=== PATIENT | female | born 1950 | race Caucasian/White ===

== ENCOUNTER 2017-06-15 14:47 | Inpatient (IN) | payer OTHER ==
--- NOTE | 2017-06-15 14:50 | PDOC ---
History of Present Illness - General History Source: Patient Exam Limitations: No Limitations - History of Present Illness Initial Comments: 06/15/17 15:57 The patient is a 66 year old female, with a significant past medical history of rheumatoid arthritis, hyperlipidemia, hypertension, angioplasty, scoliosis, coronary artery disease, who presents to the emergency department via walk in with, progressively worsening epigastric abdominal pain for approx. one day. The patient reports that since 11 am this morning the epigastric abdominal pain has been progressively getting worse and states the pain is constant. The patient reports multiple bowel movements this morning which she describes as normal (denies diarrhea, watery or bloody stool) but reports feeling light headed and chills after her most recent bowel movement. The patient reports one episode of nausea with vomiting described as non bloody non bilious prior to arrival. The patient reports she called her PMD Dr. Hawkins who advised her to come to the ED for evaluation. The patient reports her most recent colonoscopy was approx. 7 years ago. She denies recent fevers, headache or dizziness. She denies recent, diarrhea or constipation. She denies recent dysuria, frequency, urgency or hematuria. She denies recent chest pain or shortness of breath. Allergies: quinine sulfate Past surgical history: left hip replacement 09/2012, cardiac stent 2009 Social history: Nonsmoker. Denies EtOH use and recreational drug use. Primary Care Physician: Dr. Philipp Hawkins <Zhang Chavez - Last Filed: 06/15/17 20:42> - History of Present Illness Initial Comments: 06/15/17 17:35 Physical exam: Alert and oriented 3, well-developed well-nourished, no acute distress, cheerful and cooperative Afebrile, vital signs normal No pallor or icterus. PERRLA, fundi benign, ENT clear Neck supple without mass bruit or nodes Chest clear to P&A, full breath sounds bilaterally CV S1 and S2 normal without murmur rub or gallop pulses full and symmetric no JVD or edema Abdomen nondistended. Bowel sounds normal. Soft without mass or organomegaly. There is tenderness to deep palpation in the epigastrium and right upper quadrant with the suggestion of a positive Paniagua sign. There is no lower quadrant tenderness and no CVAT. Extremities no CCE Neurological intact Skin clear, no rash, adequate turgor, and wet mucous membranes Impression: Differential includes acute viral gastroenteritis, biliary colic, acute cholecystitis, hepatitis, gastritis Plan: CBC and chemistries, urinalysis, ultrasound, and further evaluation depending on results. <Hussein Zee - Last Filed: 06/19/17 07:09> - General Chief Complaint: Pain Stated Complaint: ABDOMINAL PAIN,NAUSEA,VOMITING Time Seen by Provider: 06/15/17 14:50 Past History <Zhang Chavez - Last Filed: 06/15/17 20:42> - Past Medical History Cardiac Disorders: Yes HTN: Yes Hypercholesterolemia: Yes Thyroid Disease: Yes - Surgical History Cardiac Surgery: Yes (STENT) - Suicide/Smoking/Psychosocial Hx Smoking Status: No Smoking History: Former smoker Number of Cigarettes Smoked Daily: 2 <Hussein Zee - Last Filed: 06/19/17 07:09> - Past Medical History Allergies/Adverse Reactions: Allergies Allergy/AdvReac Type Severity Reaction Status Date / Time quinine sulfate [From Quine] Allergy Rash Verified 06/15/17 14:50 Home Medications: Ambulatory Orders Alprazolam 0.5 tablet PO HS PRN #100 08/01/14 Sulfasalazine [Sulfasalazine Dr] 2 tablet PO HS #150 08/01/14 traMADol HCL [Ultram -] 50 mg PO BID #60 08/01/14 Atenolol [Tenormin -] 25 mg PO DAILY 06/15/17 Fenofibrate 0 mg PO HS 06/15/17 Levothyroxine [Synthroid -] 50 mcg PO ASDIR 06/15/17 Levothyroxine [Synthroid -] 75 mcg PO ASDIR 06/15/17 Amlodipine Besylate 10 mg PO DAILY #15 tablet 06/17/17 Acetaminophen [Tylenol .Regular Strength -] 650 mg PO Q6H PRN tablet 06/18/17 Review of Systems - Review of Systems Comments:: 06/15/17 15:58 CONSTITUTIONAL: Present: +chills Absent: fever, diaphoresis, generalized weakness, malaise, loss of appetite HEENT: Absent: rhinorrhea, nasal congestion, throat pain, throat swelling, difficulty swallowing, mouth swelling, ear pain, eye pain, visual Changes CARDIOVASCULAR: Present: +lightheadedness Absent: chest pain, syncope, palpitations, irregular heart rate, peripheral edema RESPIRATORY: Absent: cough, shortness of breath, dyspnea with exertion, orthopnea, wheezing, stridor, hemoptysis GASTROINTESTINAL: Present: +epigastric abdominal pain. +nausea. +vomiting. Absent: abdominal distension, diarrhea, constipation, melena, hematochezia GENITOURINARY: Absent: dysuria, frequency, urgency, hesitancy, hematuria, flank pain, genital pain MUSCULOSKELETAL: Absent: myalgia, arthralgia, joint swelling SKIN: Absent: rash, itching, pallor HEMATOLOGIC/IMMUNOLOGIC: Absent: easy bleeding, easy bruising, lymphadenopathy, frequent infections ENDOCRINE: Absent: unexplained weight gain, unexplained weight loss, heat intolerance, cold intolerance NEUROLOGIC: Absent: headache, focal weakness or paresthesias, dizziness, unsteady gait, seizure, mental status changes, bladder or bowel incontinence PSYCHIATRIC: Absent: anxiety, depression, suicidal or homicidal ideation, hallucinations. <Zhang Chavez - Last Filed: 06/15/17 20:42> *Physical Exam - Vital Signs Last Vital Signs Temp Pulse Resp BP Pulse Ox 99.1 F 60 18 130/63 100 06/15/17 14:48 06/15/17 14:48 06/15/17 14:48 06/15/17 14:48 06/15/17 14:48 <Zhang Chavez - Last Filed: 06/15/17 20:42> Heart Score/ECG Review #1 06/15/17 20:43 Normal Sinus Rhythm at [address] Cadet. <Zhang Chavez - Last Filed: 06/15/17 20:42> ED Treatment Course - LABORATORY CBC & Chemistry Diagram: 06/15/17 15:51 06/15/17 15:51 - RADIOLOGY Radiograph Interpretation: 06/15/17 17:50 EXAM#: TYPE/EXAM: RESULT: [id number] US/ABDOMEN US -LIMITED EXAM: Ultrasound abdomen - limited. INDICATION: Right upper quadrant pain. Nausea. Emesis. TECHNIQUE: Real-time grayscale and color Doppler sonogram of the right upper quadrant of the abdomen was performed with the technologist. Images are submitted for review. COMPARISON: No prior right upper quadrant sonogram. FINDINGS: The liver is normal in size measuring 13.7 cm in length with grossly normal hepatic echotexture. No definite hepatic mass identified. There are numerous small mobile gallstones. The gallbladder is borderline hydropic. The gallbladder wall is thickened, measuring 5 mm with trace pericholecystic fluid. Technologist reports a positive sonographic Paniagua's sign. There is no evidence of intrahepatic or extrahepatic biliary ductal dilatation. A proximal extrahepatic bile duct measures 4-5 mm in diameter. The visualized portions of the pancreatic head and body are grossly unremarkable. The pancreatic tail is obscured by bowel gas and is not assessed. The right kidney is normal in size, measuring 11.2 cm in length with normal cortical echotexture and without hydronephrosis. There is a simple appearing cyst versus calyceal diverticulum in the upper pole of the right kidney, measuring 3.6 x 3.3 x 2.8 cm. No free fluid identified in the right upper quadrant of the abdomen. The upper abdominal aorta and intrahepatic IVC are grossly unremarkable, where imaged. IMPRESSION: 1. Borderline hydropic gallbladder with mobile cholelithiasis, gallbladder wall thickening, trace pericholecystic fluid and positive sonographic Paniagua's sign. The constellation of findings are compatible with acute cholecystitis in the appropriate clinical setting. 2. No evidence of intrahepatic or extrahepatic biliary ductal dilatation. 3. A 3.6 x 3.3 cm right renal cyst versus calyceal diverticulum. Reported By: Ansley Wetzel DO <Zhang Chavez - Last Filed: 06/15/17 20:42> - LABORATORY CBC & Chemistry Diagram: 06/18/17 06:00 06/18/17 06:00 <Hussein Zee - Last Filed: 06/19/17 07:09> Medical Decision Making - Medical Decision Making 06/15/17 18:16 White blood count is normal, but the patient is maintained on Humira Bilirubin and LFTs are mildly elevated. Ultrasound shows gallstones and evidence of acute cholecystitis. There is no bile duct dilatation. Spoke to patient's primary M.D. Dr. Mullins. He recommends admission and consultation with GI, surgery. This was discussed with the patient. She agrees. She will be transferred to [facility]. Possible ERCP and GI evaluation, as well as surgical consultation. 06/19/17 07:07 <Hussein Zee - Last Filed: 06/19/17 07:09> *DC/Admit/Observation/Transfer - Attestations Scribe Attestion: 06/15/17 15:58 Documentation prepared by Zhang Chavez, acting as medical center representative for Hussein Zee MD. <Zhang Chavez - Last Filed: 06/15/17 20:42> - Discharge Dispostion Admit: Yes <Hussein Zee - Last Filed: 06/19/17 07:09> Diagnosis at time of Disposition: Acute cholecystitis - Discharge Dispostion Condition at time of disposition: Good
[2017-06-15] MEDS ORDERED: SODIUM CHLORIDE 1,000 ML IV STA (15:55)
[2017-06-15] MEDS ORDERED: PANTOPRAZOLE SODIUM 40 MG in SODIUM CHLORIDE 100 ML IVPB ONE (15:56)
[2017-06-15] MEDS ORDERED: ONDANSETRON 4 MG/2 ML VIAL IVPB ONE (15:56)
[2017-06-15] MEDS ORDERED: ONDANSETRON 4 MG/2 ML VIAL ONE (16:01)
[2017-06-15] MEDS ORDERED: PANTOPRAZOLE SODIUM 40 MG VIAL ONE (16:01)
[2017-06-15 16:27] LABS: EOS % 0.2 % (0-4.5); MCH 28.6 pg (25.7-33.7)
[2017-06-15 16:31] LABS: ALBUMIN 4.6 g/dl (3.5-5.0); ALK PHOS 89 U/L (32-92); ANION GAP 10 (8-16); BILIRUBIN,TOTAL 1.9 mg/dl (0.2-1.0); BLOOD UREA NITROGEN 20 mg/dl (7-18); CALCIUM 9.9 mg/dl (8.4-10.2); CHLORIDE 102 mmol/L (98-107); CO2 26 mmol/L (22-28); CREATININE 0.8 mg/dl (0.6-1.3); GLUCOSE,RANDOM 119 mg/dl (74-106); POTASSIUM 3.7 mmol/L (3.5-5.1); SGOT/AST 284 U/L (10-42); SGPT/ALT 264 U/L (10-40); SODIUM 138 mmol/L (136-145); TOT PROT 7.4 g/dl (6.4-8.3)
[2017-06-15 16:32] LABS: HEMATOCRIT 43.9 % (32.4-45.2); HEMOGLOBIN 14.4 GM/dl (10.7-15.3); LYMPH % 10.9 % (8-40); MCHC 32.8 g/dl (32.0-36.0); MEAN PLT VOLUME 10.4 fl (7.5-11.1); MONO % 3.7 % (3.8-10.2); NEUT % 85.2 % (42.8-82.8); PLATELET COUNT 243 K/MM3 (134-434); RBC 5.04 M/mm3 (3.60-5.2); RDW 13.1 % (11.6-15.6); WHITE BLOOD COUNT 9.1 K/mm3 (4.0-10.8)
[2017-06-15 16:43] LABS: URINE APPEARANCE Clear; URINE BILIRUBIN 2+ (NEGATIVE); URINE BLOOD Negative (NEGATIVE); URINE GLUCOSE (UA) Negative (NEGATIVE); URINE KETONE Negative (NEGATIVE); URINE LEUK ESTERASE Negative (NEGATIVE); URINE NITRITE Negative (NEGATIVE); URINE PROTEIN Negative (NEGATIVE); URINE UROBILINOGEN 0.2 (0.2-1.0)
[2017-06-15 16:45] LABS: URINE COLOR YELLOW
[2017-06-15] MEDS ORDERED: PIPERACIL/TAZOB 3.375 GM 3.375 GM/50 ML PREMIX IVPB ONE (18:14)
[2017-06-15] MEDS ORDERED: morphine CARPU-JECT 4 MG/1 ML DISP.SYRIN IVPUSH ONE ×2 (18:16→23:11)
[2017-06-15] MEDS ORDERED: morphine SULFATE 4 MG/ML VIAL ONE ×2 (18:28→23:48)
[2017-06-15] MEDS ORDERED: PIPERACILLIN/TAZOBACTAM 3.375 GM VIAL IVPB ONE (18:28)
[2017-06-15] MEDS ORDERED: ONDANSETRON 4 MG/2 ML VIAL IVPUSH PRN (18:55)
[2017-06-15] MEDS: SODIUM CHLORIDE 1,000 ML IV SCH (19:01)
[2017-06-16] MEDS: SODIUM CHLORIDE 1,000 ML IV SCH ×2 (02:00→12:34)
[2017-06-16 02:33] VITALS: BMI 29.0
[2017-06-16] MEDS ORDERED: PIPERACIL/TAZOB 3.375 GM 3.375 GM/50 ML PREMIX IVPB SCH (03:00)
--- NOTE | 2017-06-16 03:16 | HP ---
Admitting History and Physical - Primary Care Physician PCP: Rosalio Louis - Admission Chief Complaint: Epigastric Pain, Multiple BMs History of Present Illness: This is a 66 y/o woman who presents to the ED with epigastric pain, multiple BMs , lightheadedness and chills x 1 day. Patient describes the pain as becoming progressively worse during the day. She reports having numerous formed BMs, but developed chills and felt lightheaded after her last BM. Patient denies fever, cough, SOB, CP, palpitations, N/V/D, constipation, dysuria. Patient states her last colonoscopy was 7 yrs ago. History Source: Patient Limitations to Obtaining History: No Limitations - Past Medical History Cardiovascular: Yes: CAD, HTN, Hyperlipdemia Reproductive: Yes: Postmenopausal ...: No Musculoskeletal: Yes: Other (Scoliosis) Rheumatology: Yes: Rheumatoid Arthritis Endocrine: Yes: Hypothyroidism - Past Surgical History Past Surgical History: Yes: Colonoscopy, Joint Replacement (Left), Stent ( Cardiac) Additional Past Surgical History: Angioplasty - Smoking History Smoking history: Former smoker Have you smoked in the past 12 months: No Aproximately how many cigarettes per day: 2 If you are a former smoker, when did you quit?: 40 years ago - Alcohol/Substance Use Hx Alcohol Use: No History of Substance Use: reports: None - Social History Usual Living Arrangement: Yes: Alone ADL: Independent History of Recent Travel: No Home Medications - Allergies Allergies/Adverse Reactions: Allergies Allergy/AdvReac Type Severity Reaction Status Date / Time quinine sulfate [From Quine] Allergy Rash Verified 06/15/17 14:50 - Home Medications Home Medications: Ambulatory Orders Alprazolam 0.5 tablet PO HS PRN #100 08/01/14 Sulfasalazine [Sulfasalazine Dr] 2 tablet PO HS #150 08/01/14 traMADol HCL [Ultram -] 50 mg PO BID #60 08/01/14 Atenolol [Tenormin -] 25 mg PO DAILY 06/15/17 Fenofibrate 0 mg PO HS 06/15/17 Levothyroxine [Synthroid -] 50 mcg PO ASDIR 06/15/17 Levothyroxine [Synthroid -] 75 mcg PO ASDIR 06/15/17 Amlodipine Besylate 10 mg PO DAILY #15 tablet 06/17/17 Acetaminophen [Tylenol .Regular Strength -] 650 mg PO Q6H PRN tablet 06/18/17 Family Disease History - Family Disease History Family Disease History: Diabetes: Grandparent (Paternal-DM, Maternal-Cardiac), Heart Disease: Grandparent, Mother (Triple Bypass), Other: Father (Renal Colic) Other Family History: Paternal Aunt- Cervical Ca Review of Systems - Review of Systems Constitutional: reports: Chills Eyes: reports: No Symptoms HENT: reports: No Symptoms Neck: reports: No Symptoms Cardiovascular: reports: No Symptoms Respiratory: reports: No Symptoms Gastrointestinal: reports: Abdominal Pain, Other (multiple BMs) Genitourinary: reports: No Symptoms Breasts: reports: No Symptoms Reported Musculoskeletal: reports: No Symptoms Integumentary: reports: No Symptoms Neurological: reports: No Symptoms Endocrine: reports: No Symptoms Hematology/Lymphatic: reports: No Symptoms Psychiatric: reports: No Symptoms Pain Intensity: 5 Physical Examination Vital Signs: Vital Signs Temperature 99.4 F 06/16/17 01:27 Pulse Rate 71 06/16/17 01:27 Respiratory Rate 20 06/16/17 01:27 Blood Pressure 128/66 06/16/17 01:27 O2 Sat by Pulse Oximetry (%) 95 06/15/17 23:46 Constitutional: Yes: Well Nourished, No Distress, Calm, Obese Eyes: Yes: WNL, Conjunctiva Clear, PERRL HENT: Yes: WNL, Atraumatic, Normocephalic Neck: Yes: WNL, Supple, Trachea Midline Cardiovascular: Yes: WNL, Regular Rate and Rhythm, S1, S2 Respiratory: Yes: WNL, Regular, CTA Bilaterally Gastrointestinal: Yes: Normal Bowel Sounds, Soft, Abdomen, Obese, Tenderness ( RUQ), Tenderness, Epigastrium ...Rectal Exam: Yes: Deferred Renal/: Yes: WNL Breast(s): Yes: WNL Musculoskeletal: Yes: WNL Extremities: Yes: WNL Edema: No Peripheral Pulses WNL: Yes Integumentary: Yes: WNL Neurological: Yes: WNL, Alert, Oriented, Cran Nerves II-XII Intact ...Motor Strength: WNL, LUE, LLE, RUE, RLE Psychiatric: Yes: WNL, Alert, Oriented Labs: CBC, BMP 06/15/17 15:51 06/15/17 15:51 Imaging - Results Cat Scan: Report Reviewed, Image Reviewed EKG: Image Reviewed Problem List - Problems (1) Acute cholecystitis Assessment/Plan: CTAP- Cholelithiasis, GB wall thickening, trace pericholecystic fluid, + sonographic joyce's sign findings are compatible with acute cholecystitis No leukocytosis, +Neutrophils T Bili elevated Blood Cultures-pending Zosyn started in ED, will continue Appreciate Surgical Consult Appreciate GI Consult ?MRCP IVF NPO, except meds Monitor CBCD, BMP Monitor vitals Code(s): K81.0 - ACUTE CHOLECYSTITIS (2) Abdominal pain, epigastric Assessment/Plan: See Above Code(s): R10.13 - EPIGASTRIC PAIN (3) Transaminitis Assessment/Plan: Likely secondary to Acute Cholecystitis Monitor LFTs Appreciate GI Consult Possible MRCP Avoid Hepatoxic Drugs Code(s): R74.0 - NONSPEC ELEV OF LEVELS OF TRANSAMNS & LACTIC ACID DEHYDRGNSE (4) HTN (hypertension) Assessment/Plan: Controlled Monitor BP Continue home meds with parameters Code(s): I10 - ESSENTIAL (PRIMARY) HYPERTENSION Qualifiers: Hypertension type: essential hypertension Qualified Code(s): I10 - Essential (primary) hypertension (5) HLD (hyperlipidemia) Assessment/Plan: Hold Fenofibrate Code(s): E78.5 - HYPERLIPIDEMIA, UNSPECIFIED Qualifiers: Hyperlipidemia type: pure hypercholesterolemia Qualified Code(s): E78.00 - Pure hypercholesterolemia, unspecified; E78.0 - Pure hypercholesterolemia (6) Hypothyroidism Assessment/Plan: - Continue Levothyroxine Code(s): E03.9 - HYPOTHYROIDISM, UNSPECIFIED Qualifiers: Hypothyroidism type: acquired Qualified Code(s): E03.9 - Hypothyroidism, unspecified (7) CAD (coronary artery disease) Assessment/Plan: s/p Stent Hold Plavix until patient is seen by GI and Surgeon Code(s): I25.10 - ATHSCL HEART DISEASE OF [place] CORONARY ARTERY W/O ANG PCTRS Qualifiers: Coronary Disease-Associated Artery/Lesion type: [place] artery [place] vs. transplanted heart: [place] heart Associated angina: without angina Qualified Code(s): I25.10 - Atherosclerotic heart disease of [place] coronary artery without angina pectoris Assessment/Plan This is a 66 y/o woman with a PMHx of: HTN, HLD, CAD (Stent), Hypothyroid, Scoliosis. Placed on Observation for Acute Cholecystitis Plan: FEN NS@100cc/hr Replete lytes prn NPO Code Status: Full Code Dispo: Observation Visit type - Emergency Visit Emergency Visit: Yes ED Registration Date: 06/15/17 Care time: The patient presented to the Emergency Department on the above date and was hospitalized for further evaluation of their emergent condition. - New Patient This patient is new to me today: Yes Date on this admission: 06/15/17 - Critical Care Critical Care patient: No
[2017-06-16] MEDS ORDERED: PIPERACILLIN/TAZOB 4.5 GM/100 ML PREMIX BAG IVPB SCH ×2 (03:47→04:00)
[2017-06-16] MEDS ORDERED: PIPERACILLIN/TAZOB 4.5 GM 4.5 GM in DEXTROSE 5%-WATER - 100 ML IVPB ONE (04:00)
[2017-06-16] MEDS: MORPHINE SULFATE 10 MG/1 ML *VIAL IVPUSH PRN ×3 (05:52→17:18)
[2017-06-16] MEDS ORDERED: LEVOTHYROXINE NA 75 MCG TABLET (FP) PO SCH (07:00)
[2017-06-16 08:10] LABS: BASO % 0.5 % (0-2.0); EOS % 0.8 % (0-4.5); HEMATOCRIT 38.7 % (32.4-45.2); HEMOGLOBIN 12.6 GM/dL (10.7-15.3); MCH 28.2 pg (25.7-33.7); MCHC 32.5 g/dl (32.0-36.0); MEAN CELL VOLUME 86.7 fl (80-96); MEAN PLT VOLUME 9.6 fl (7.5-11.1); MONO % 8.7 % (3.8-10.2); PLATELET COUNT 179 K/MM3 (134-434); RBC 4.46 M/mm3 (3.60-5.2); RDW 14.3 % (11.6-15.6); WHITE BLOOD COUNT 5.7 K/mm3 (4.0-10.0)
[2017-06-16 08:11] LABS: ANION GAP 9 (8-16); BLOOD UREA NITROGEN 15 mg/dL (7-18); CALCIUM 9.3 mg/dL (8.5-10.1); CHLORIDE 110 mmol/L (98-107); CO2 27 mmol/L (21-32); GLUCOSE,RANDOM 93 mg/dL (74-106); POTASSIUM 3.4 mmol/L (3.5-5.1); SODIUM 146 mmol/L (136-145)
[2017-06-16 08:12] LABS: CREATININE 0.8 mg/dL (0.55-1.02)
--- NOTE | 2017-06-16 08:27 | CON.GI ---
Consult Consult Specialty:: GI - History of Present Illness History of Present Illness: A 66 yof with mild epigastric pain and heartburn after meals on/off since last week. Progressed on Thursday to having chills, nausea with an episode of vomiting , severe epigastric pain and frequent, formed, bms. No jaundice, dysphagia, odynophagia, hematemesis, hematochezia, or melena. Denies chronic GERD, NSAIDs, ETOH, recent, significant weight loss, changes in stool caliper, history of pancreatitis, hepatitis, of GI issues in general. Never had EGD. Had a normal colonoscopy 7-8 y ago. In ED noted to have AST~ALT, mild choelstasis and GS disease on US, possible cholecystitis. - History Source History Provided By: Patient - Past Medical History Cardio/Vascular: Yes: CAD, HTN, Hyperlipdemia ...: No Musculoskeletal: Yes: Other (Scoliosis) Rheumatology: Yes: Rheumatoid Arthritis Endocrine: Yes: Hypothyroidism - Past Surgical History Past Surgical History: Yes: Colonoscopy, Joint Replacement (Left), Stent ( Cardiac) - Alcohol/Substance Use Hx Alcohol Use: No History of Substance Use: reports: None - Smoking History Smoking history: Former smoker Have you smoked in the past 12 months: No Aproximately how many cigarettes per day: 2 If you are a former smoker, when did you quit?: 40 years ago - Social History ADL: Independent History of Recent Travel: No Home Medications - Allergies Allergies/Adverse Reactions: Allergies Allergy/AdvReac Type Severity Reaction Status Date / Time quinine sulfate [From Quine] Allergy Rash Verified 06/15/17 14:50 - Home Medications Home Medications: Ambulatory Orders Adalimumab [Humira] 40 mg SQ [id number] #2 08/01/14 Alprazolam 0.5 tablet PO HS PRN #100 08/01/14 Sulfasalazine [Sulfasalazine Dr] 2 tablet PO HS #150 08/01/14 Tramadol HCl [Ultram -] 50 mg PO BID #60 08/01/14 Atenolol [Tenormin -] 25 mg PO DAILY 06/15/17 Clopidogrel Bisulfate [Plavix] 75 mg PO Q2D 06/15/17 Fenofibrate 0 mg PO HS 06/15/17 Levothyroxine [Synthroid -] 50 mcg PO ASDIR 06/15/17 Levothyroxine [Synthroid -] 75 mcg PO ASDIR 06/15/17 Olmesartan/Hydrochlorothiazide [Olmesartan-Hctz 40-12.5 mg Tab] 1 each PO DAILY 06/15/17 Family Disease History - Family Disease History Family Disease History: Diabetes: Grandparent (Paternal-DM, Maternal-Cardiac), Heart Disease: Grandparent, Mother (Triple Bypass), Other: Father (Renal Colic) Other Family History: Paternal Aunt- Cervical Ca Review of Systems Findings/Remarks: As per HPI, H&P Physical Exam-GI Vital Signs: Vital Signs Temperature 99.2 F 06/16/17 06:48 Pulse Rate 74 06/16/17 06:48 Respiratory Rate 20 06/16/17 06:48 Blood Pressure 154/78 06/16/17 06:48 O2 Sat by Pulse Oximetry (%) 95 06/15/17 23:46 Constitutional: Yes: Well Nourished, No Distress, Calm Eyes: Yes: Conjunctiva Clear HENT: Yes: Atraumatic Neck: Yes: Supple Cardiovascular: Yes: Regular Rate and Rhythm Respiratory: Yes: Regular Gastrointestinal Inspection: No: Ascites, Distention ...Auscultate: Yes: Normoactive Bowel Sounds ...Palpate: Yes: Guarding (epigastric), Soft, Tenderness (epigastric), Tenderness, Epigastium ...Rectal Exam: Yes: Deferred Neurological: Yes: Alert, Oriented Labs: CBC, BMP 06/16/17 06:30 Laboratory Tests 06/15/17 06/15/17 06/15/17 15:51 15:51 15:51 WBC 9.1 RBC 5.04 Hgb 14.4 Hct 43.9 MCV 87.0 MCH 28.6 MCHC 32.8 RDW 13.1 Plt Count 243 MPV 10.4 Neutrophils % 85.2 H Lymphocytes % 10.9 Monocytes % 3.7 L Eosinophils % 0.2 Basophils % 0.0 Sodium 138 Potassium 3.7 Chloride 102 Carbon Dioxide 26 Anion Gap 10 BUN 20 H Creatinine 0.8 Creat Clearance w eGFR > 60 Random Glucose 119 H Calcium 9.9 Total Bilirubin 1.9 H AST 284 H ALT 264 H Alkaline Phosphatase 89 Total Protein 7.4 Albumin 4.6 Lipase Urine Color Yellow Urine Appearance Clear Urine pH 6.0 Ur Specific Chancellor 1.020 Urine Protein Negative Urine Glucose (UA) Negative Urine Ketones Negative Urine Blood Negative Urine Nitrite Negative Urine Bilirubin 2+ H Urine Urobilinogen 0.2 Ur Leukocyte Esterase Negative 06/15/17 06/16/17 06/16/17 16:00 06:30 06:30 WBC 5.7 RBC 4.46 Hgb 12.6 Hct 38.7 MCV 86.7 MCH 28.2 MCHC 32.5 RDW 14.3 Plt Count 179 MPV 9.6 Neutrophils % 66.0 Lymphocytes % 24.0 Monocytes % 8.7 Eosinophils % 0.8 Basophils % 0.5 Sodium 146 H Potassium 3.4 L Chloride 110 H Carbon Dioxide 27 Anion Gap 9 BUN 15 Creatinine 0.8 Creat Clearance w eGFR Random Glucose 93 Calcium 9.3 Total Bilirubin AST ALT Alkaline Phosphatase Total Protein Albumin Lipase 363 421 H Urine Color Urine Appearance Urine pH Ur Specific Chancellor Urine Protein Urine Glucose (UA) Urine Ketones Urine Blood Urine Nitrite Urine Bilirubin Urine Urobilinogen Ur Leukocyte Esterase Problem List - Problems (1) Cholelithiasis Code(s): K80.20 - CALCULUS OF GALLBLADDER W/O CHOLECYSTITIS W/O OBSTRUCTION (2) Transaminitis Code(s): R74.0 - NONSPEC ELEV OF LEVELS OF TRANSAMNS & LACTIC ACID DEHYDRGNSE (3) Cholestasis Code(s): K83.1 - OBSTRUCTION OF BILE DUCT (4) Acute cholecystitis Code(s): K81.0 - ACUTE CHOLECYSTITIS Assessment/Plan A 66 yof with likely cholecystitis and mild gallstone pancreatitis. Not in distress. Appears comfortable. Do not suspect upper GI inflammatory states sach as ulcers, etc at this time. On Plavix at home. NPO/IVF Antiemetics and pain managemnt PRN Abx (zosyn, or levo/flagyl, or as per ID) MRCP to r/o choledocolithiasis ordered repeat labs in PM ordered Surgical and ID evaluation was requested Discussed with the patient
[2017-06-16 08:28] LABS: LIPASE 421 U/L (73-393)
[2017-06-16] MEDS ORDERED: PIPERACILLIN/TAZOB 2.25 GM 2.25 GM/50 ML BAG IVPB SCH (11:30)
--- NOTE | 2017-06-16 11:54 | PN ---
Progress Note, Physician Chief Complaint: Pt lying in bed in no acute distress, reports mild epigastric abdominal pain. Denies chest pain, sob, N/V/D. - Current Medication List Current Medications: Active Medications Sodium Chloride (Normal Saline -) 1,000 mls @ 100 mls/hr IV ASDIR GLORIA Last Admin: 06/16/17 02:00 Dose: 100 mls/hr Piperacillin/Tazobactam/Dextrose (Zosyn 2.25gm Ivpb (Premix)) 2.25 gm in 50 mls @ 100 mls/hr IVPB Q8H-IV GLORIA PRN Reason: Protocol Levothyroxine Sodium (Synthroid -) 75 mcg PO Q3D@0700 [facility] Last Admin: 06/16/17 06:00 Dose: 75 mcg Levothyroxine Sodium (Synthroid -) 75 mcg PO Q3D@0700 [facility] Levothyroxine Sodium (Synthroid -) 50 mcg PO Q3D@0700 [facility] Morphine Sulfate (Morphine Injection -) 4 mg IVPUSH Q6H PRN PRN Reason: PAIN LEVEL 6-10 Last Admin: 06/16/17 05:52 Dose: 4 mg Ondansetron HCl (Zofran Injection) 4 mg IVPUSH Q4H PRN PRN Reason: NAUSEA AND/OR VOMITING - Objective Vital Signs: Vital Signs Temperature 98.8 F 06/16/17 10:00 Pulse Rate 63 06/16/17 10:00 Respiratory Rate 16 06/16/17 10:00 Blood Pressure 145/67 06/16/17 10:00 O2 Sat by Pulse Oximetry (%) 95 06/15/17 23:46 Constitutional: Yes: Well Nourished, No Distress, Calm Cardiovascular: Yes: WNL, Regular Rate and Rhythm. No: Gallop, Murmur, Rub Respiratory: Yes: WNL, Regular, CTA Bilaterally. No: Rales, Rhonchi, SOB, Tachypnea, Wheezes Gastrointestinal: Yes: Normal Bowel Sounds, Soft, Abdomen, Obese, Tenderness ( epigastric). No: Distention Genitourinary: Yes: WNL Musculoskeletal: Yes: WNL Extremities: Yes: WNL Edema: No Neurological: Yes: WNL, Alert, Oriented Psychiatric: Yes: WNL, Alert, Oriented Labs: CBC, BMP 06/16/17 06:30 06/16/17 06:30 Problem List - Problems (1) Acute cholecystitis Assessment/Plan: Pt came in with epigastric abd pain with N/V, Abd US indicative of acute cholecystitis with elevated lfts, dustin, and lipase Maintain NPO/ IVF Antiemetics/analegesics prn Antibiotics per ID MRCP to r/o choledocolithiasis ordered by GI Monitor am labs Surgery and ID consulted GI following Code(s): K81.0 - ACUTE CHOLECYSTITIS (2) Cholelithiasis Assessment/Plan: As above Code(s): K80.20 - CALCULUS OF GALLBLADDER W/O CHOLECYSTITIS W/O OBSTRUCTION Qualifiers: Cholelithiasis location: gallbladder Cholecystitis acuity: acute Biliary obstruction: without biliary obstruction (3) Transaminitis Assessment/Plan: As above Code(s): R74.0 - NONSPEC ELEV OF LEVELS OF TRANSAMNS & LACTIC ACID DEHYDRGNSE (4) Pancreatitis Assessment/Plan: mildly elevated lipase will monitor as above Code(s): K85.90 - ACUTE PANCREATITIS WITHOUT NECROSIS OR INFECTION, UNSP Qualifiers: Chronicity: acute Pancreatitis type: biliary (5) Rheumatoid arthritis Assessment/Plan: stable, holding home meds now Humira, Sulfasalazine, Tramadol at home Code(s): M06.9 - RHEUMATOID ARTHRITIS, UNSPECIFIED Qualifiers: Rheumatoid arthritis location: multiple sites Rheumatoid factor presence: unspecified presence Qualified Code(s): M06.9 - Rheumatoid arthritis, unspecified (6) HLD (hyperlipidemia) Assessment/Plan: holding Fenofibrate Code(s): E78.5 - HYPERLIPIDEMIA, UNSPECIFIED Qualifiers: Hyperlipidemia type: pure hypercholesterolemia Qualified Code(s): E78.00 - Pure hypercholesterolemia, unspecified; E78.0 - Pure hypercholesterolemia (7) HTN (hypertension) Assessment/Plan: continue Atenolol hold Olmesartan/Hydrochlorothiazide will monitor Code(s): I10 - ESSENTIAL (PRIMARY) HYPERTENSION Qualifiers: Hypertension type: essential hypertension Qualified Code(s): I10 - Essential (primary) hypertension (8) Hypothyroidism Assessment/Plan: stable continue levothyroxine Code(s): E03.9 - HYPOTHYROIDISM, UNSPECIFIED Qualifiers: Hypothyroidism type: acquired Qualified Code(s): E03.9 - Hypothyroidism, unspecified (9) CAD (coronary artery disease) Assessment/Plan: stable holding plavix for now aspirin 81mg started per cardiology Code(s): I25.10 - ATHSCL HEART DISEASE OF [place] CORONARY ARTERY W/O ANG PCTRS Qualifiers: Coronary Disease-Associated Artery/Lesion type: [place] artery [place] vs. transplanted heart: [place] heart Associated angina: without angina Qualified Code(s): I25.10 - Atherosclerotic heart disease of [place] coronary artery without angina pectoris
[2017-06-16] MEDS ORDERED: KCL 10 MEQ IVPB 10 MEQ/100 ML INFUS.BAG IVPB SCH (12:15)
[2017-06-16] MEDS ORDERED: HYDROCHLOROTHIAZIDE 12.5 MG CAPSULE (FP) PO SCH (12:30)
--- NOTE | 2017-06-16 12:33 | CON.CARD ---
Cardiology Consult (text) - Consultation Consultation Note: CC: pre-op clearance Chief Complaint: pre-op clearance History of Present Illness: 66 y/o with h/o CAD s/p mRCA cypher stent '08 with residual mLAD disease, known LBBB, htn, hl, RA on Humira, fibromyalgia, hypothyroid who p/w abdominal pain, now with suspicion for acute cholecystitis/possible developing pancreatitis --> likely requiring surgical intervention. + intermittent abdominal pain after meals x 1 week. Now with chills, n/v and worsening of abdominal pain. Has been treated thus far with IVF, abx. currently npo. Pain is well controlled with morphine. No formal exercise, ambulation limited by joint pain/back pain. However walks up a flight of stairs regularly without sx's/limitations. Stable conde after walking up 2 flights of stairs. no h/o cva/tia, chf, dm, ckd. Denies cp, sob at rest, orthopnea, pnd, le edema, palps, dizziness, bleeding, claudication or transient neurologic symptoms Denies h/a, visual disturbances, rash, cough, congestion. pmhx/pshx: per phi, additionally Joint Replacement (Left) Social hx: Former smoker fam hx: Heart Disease: mother CAD in 70s; PGF [place] in 70s ros: per hpi Ambulatory Orders Adalimumab [Humira] 40 mg SQ [id number] #2 08/01/14 Alprazolam 0.5 tablet PO HS PRN #100 08/01/14 Sulfasalazine [Sulfasalazine Dr] 2 tablet PO HS #150 08/01/14 traMADol HCL [Ultram -] 50 mg PO BID #60 08/01/14 Atenolol [Tenormin -] 25 mg PO DAILY 06/15/17 Clopidogrel Bisulfate [Plavix] 75 mg PO Q2D 06/15/17 Fenofibrate 0 mg PO HS 06/15/17 Levothyroxine [Synthroid -] 50 mcg PO ASDIR 06/15/17 Levothyroxine [Synthroid -] 75 mcg PO ASDIR 06/15/17 Olmesartan/Hydrochlorothiazide [Olmesartan-Hctz 40-12.5 mg Tab] 1 each PO DAILY 06/15/17 Current Medications Atenolol (Tenormin -) 25 mg PO DAILY GLORIA Sodium Chloride (Normal Saline -) 1,000 mls @ 100 mls/hr IV ASDIR GLORIA Last Admin: 06/16/17 02:00 Dose: 100 mls/hr Piperacillin/Tazobactam/Dextrose (Zosyn 2.25gm Ivpb (Premix)) 2.25 gm in 50 mls @ 100 mls/hr IVPB Q8H-IV GLORIA PRN Reason: Protocol Potassium Chloride 10 meq/ (Sodium Chloride) 105 mls @ 105 mls/hr IVPB Q1H [facility] Stop: 06/16/17 15:29 Levothyroxine Sodium (Synthroid -) 75 mcg PO Q3D@0700 [facility] Last Admin: 06/16/17 06:00 Dose: 75 mcg Levothyroxine Sodium (Synthroid -) 75 mcg PO Q3D@0700 [facility] Levothyroxine Sodium (Synthroid -) 50 mcg PO Q3D@0700 [facility] Morphine Sulfate (Morphine Injection -) 4 mg IVPUSH Q6H PRN PRN Reason: PAIN LEVEL 6-10 Last Admin: 06/16/17 11:59 Dose: 4 mg Non-Formulary Medication (Olmesartan/Hydrochlorothiazide [Olmesartan-Hctz 40- 12.5 Mg Tab]) 1 each PO DAILY [facility] Ondansetron HCl (Zofran Injection) 4 mg IVPUSH Q4H PRN PRN Reason: NAUSEA AND/OR VOMITING Vital Signs - 24 hr 06/15/17 06/15/17 06/15/17 14:48 18:30 22:00 Temperature 99.1 F 98.1 F Pulse Rate 60 Pulse Rate [ 68 66 Apical] Respiratory 18 18 16 Rate Blood Pressure 130/63 Blood Pressure 130/68 137/64 [Arm] O2 Sat by Pulse 100 98 98 Oximetry (%) 06/15/17 06/16/17 06/16/17 23:46 01:27 06:48 Temperature 98.7 F 99.4 F 99.2 F Pulse Rate 71 74 Pulse Rate [ 64 Apical] Respiratory 18 20 20 Rate Blood Pressure 128/66 154/78 Blood Pressure 147/78 [Arm] O2 Sat by Pulse 95 Oximetry (%) 06/16/17 06/16/17 08:30 10:00 Temperature 98.8 F Pulse Rate 63 Pulse Rate [ Apical] Respiratory 16 16 Rate Blood Pressure 145/67 Blood Pressure [Arm] O2 Sat by Pulse Oximetry (%) Intake & Output 06/14/17 06/15/17 06/16/17 06/17/17 07:59 07:59 07:59 07:59 Intake Total 600 Balance 600 Weight 168 lb 14.4 oz NAD, calm JVD flat, neck supple ctab, nl effort rrr nl s1, s2 no m/r/g + bs soft nd. mild ttp of abd ext without e/c/c + dp/pt aaox3 no carotid bruits no jaundice, diaphoresis CBC, BMP 06/16/17 06:30 06/16/17 06:30 Laboratory Tests 06/15/17 06/16/17 15:51 06:30 Total Bilirubin 1.9 H AST 284 H ALT 264 H Alkaline Phosphatase 89 Lipase 421 H [facility] '08: ZOHRA cypher to [employer] of RCA, resid 50-60% mLAD, nl EF/EDP MIBI 05/22: 4:49min, LBBB throughout, no isch, nl (small) LV, nl EF/wall motion Echo 02/18: nl LV/RV; pseudonormal; borderline LAE, valves WNL 66 y/o with h/o CAD s/p mRCA cypher stent ' with residual mLAD disease, known LBBB, htn, hl, RA on Humira, fibromyalgia, hypothyroid who p/w abdominal pain, now with suspicion for acute cholecystitis/possible developing pancreatitis --> likely requiring surgical intervention. Pre-op clearance - Plan for possible lap itzel. Patient is asx from CV perspective and does not require further testing prior to surgery. Based on RCRI 1, patient has a low estimated risk for mariano-operative CV events. Patient counsled on risk. - Patient with history of long cypher stent to mRCA in 2007. Given the length of time since stenting, there is likely no significant difference in rate of very late stent thrombosis in this first generation stent (even despite length of 33 mm) in comparison to a patient with newer zohra and overall risk is low in general. No strong indication for DAPT --> Ok to hold plavix mariano-operatively. In regards to cessation of ASA mariano-operatively. --> There is general consensus to continue ASA monotherapy mariano-operatively for patients with history of prior stent due to the presumed increased risk of CV events with cessation of therapy (including not just in-stent thrombosis, but additionally [place] etc..). However, there is limited data regarding specific event rates/ outcomes and so the surgical risk of bleeding must be considered. Discussed case with surgery --> significant concern for risk of bleeding/adverse events if low dose asa were to be continued mariano-operatively (especially b/c patient also recently took plavix). Counseled that although the preference is to continue asa, it is reasonable to hold ASA if the surgical risk of continuing asa therapy is high ie. the risk of adverse surgical outcome is presumably higher than risk of adverse CV event. --> Will hold ASA per surgery recs --> low dose ASA to be resumed when cleared by surgery. HL/CAD s/p mRCA cypher stent ' with residual mLAD disease --> subsequent stress testing negative for ischemia - see discussion above regarding mariano-operative mgm't of anti-platelet therapy. - has been on DAPT therapy (although endorsed to myself and surgeon that she takes plavix qod and is not always adherent to asa.) Last plavix was thursday. - pt free of anginal sx's. - has had intolerance to statins and zetia, declined PCSK-9. Currently managed on fenofibrate, but would defer at this time given lft abnormalities. Can resume once LFT's normalize. - con't atenolol - lyte repletion prn. htn - currently reasonably controlled on atenolol alone. Ok to continue to hold benicar-hctz whild npo and requiring IVF. - pain control per pmd/gi/surg abd pain/acute cholecystitis - currently npo on IVF. - mgm't per pmd/gi/surg > 35 min spent reviewing medical record and coordinating care with pmd and surgery.
[2017-06-16] MEDS: VALSARTAN 160 MG TABLET (UD) PO SCH (13:26)
[2017-06-16] MEDS: POTASSIUM CHLORIDE 10 MEQ in SODIUM CHLORIDE 100 ML IVPB SCH ×3 (13:26→17:10)
[2017-06-16] MEDS: ATENOLOL 25 MG TABLET (FP) PO SCH (13:26)
--- NOTE | 2017-06-16 14:34 | CON.ID ---
Consult Consult Specialty:: infectious diseases Reason for Consultation:: abd pain,choleycystitis - History of Present Illness Chief Complaint: abd pain History of Present Illness: 66 yof with mild epigastric pain and heartburn after meals on/off since last week. Progressed on Thursday to having chills, nausea with an episode of vomiting , severe epigastric pain and frequent, formed, bms. patient was being initially treated without response and she called her PCP and was asked to come to the emergency room where she was seen and work up done and found to have choleycystitis and gall stones patient currently feeling better but is very thirsty - History Source History Provided By: Patient Limitations to Obtaining History: No Limitations - Past Medical History Cardio/Vascular: Yes: CAD, HTN, Hyperlipdemia ...: No Musculoskeletal: Yes: Other (Scoliosis) Rheumatology: Yes: Rheumatoid Arthritis Endocrine: Yes: Hypothyroidism - Past Surgical History Past Surgical History: Yes: Colonoscopy, Joint Replacement (Left), Stent ( Cardiac) - Alcohol/Substance Use Hx Alcohol Use: No History of Substance Use: reports: None - Smoking History Smoking history: Former smoker Have you smoked in the past 12 months: No Aproximately how many cigarettes per day: 2 If you are a former smoker, when did you quit?: 40 years ago - Social History ADL: Independent History of Recent Travel: No Home Medications - Allergies Allergies/Adverse Reactions: Allergies Allergy/AdvReac Type Severity Reaction Status Date / Time quinine sulfate [From Quine] Allergy Rash Verified 06/15/17 14:50 - Home Medications Home Medications: Ambulatory Orders Adalimumab [Humira] 40 mg SQ [id number] #2 08/01/14 Alprazolam 0.5 tablet PO HS PRN #100 08/01/14 Sulfasalazine [Sulfasalazine Dr] 2 tablet PO HS #150 08/01/14 traMADol HCL [Ultram -] 50 mg PO BID #60 08/01/14 Atenolol [Tenormin -] 25 mg PO DAILY 06/15/17 Clopidogrel Bisulfate [Plavix] 75 mg PO Q2D 06/15/17 Fenofibrate 0 mg PO HS 06/15/17 Levothyroxine [Synthroid -] 50 mcg PO ASDIR 06/15/17 Levothyroxine [Synthroid -] 75 mcg PO ASDIR 06/15/17 Olmesartan/Hydrochlorothiazide [Olmesartan-Hctz 40-12.5 mg Tab] 1 each PO DAILY 06/15/17 Family Disease History - Family Disease History Family Disease History: Diabetes: Grandparent (Paternal-DM, Maternal-Cardiac), Heart Disease: Grandparent, Mother ([place]), Other: Father (Renal Colic) Other Family History: Paternal Aunt- Cervical Ca Review of Systems - Review of Systems Constitutional: reports: Chills Eyes: reports: No Symptoms HENT: reports: No Symptoms Neck: reports: No Symptoms Cardiovascular: reports: No Symptoms Respiratory: reports: No Symptoms Gastrointestinal: reports: Abdominal Pain Musculoskeletal: reports: No Symptoms Neurological: reports: No Symptoms Endocrine: reports: No Symptoms Hematology/Lymphatic: reports: No Symptoms Psychiatric: reports: No Symptoms Physical Exam Vital Signs: Vital Signs Temperature 98.8 F 06/16/17 14:00 Pulse Rate 72 06/16/17 14:00 Respiratory Rate 18 06/16/17 14:00 Blood Pressure 134/57 06/16/17 14:00 O2 Sat by Pulse Oximetry (%) 95 06/15/17 23:46 Constitutional: Yes: Well Nourished, Calm, Mild Distress Eyes: Yes: Conjunctiva Clear Cardiovascular: Yes: Regular Rate and Rhythm Respiratory: Yes: Regular, CTA Bilaterally Gastrointestinal: Yes: Soft, Tenderness (ruq) Musculoskeletal: Yes: WNL Extremities: Yes: WNL Neurological: Yes: Alert, Oriented Psychiatric: Yes: Alert, Oriented Labs: CBC, BMP 06/16/17 06:30 06/16/17 06:30 Assessment/Plan Problem List - Problems (1) Acute cholecystitis Code(s): K81.0 - ACUTE CHOLECYSTITIS (2) Cholelithiasis Code(s): K80.20 - CALCULUS OF GALLBLADDER W/O CHOLECYSTITIS W/O OBSTRUCTION Qualifiers: Cholelithiasis location: gallbladder Cholecystitis acuity: acute Biliary obstruction: without biliary obstruction (3) Transaminitis Code(s): R74.0 - NONSPEC ELEV OF LEVELS OF TRANSAMNS & LACTIC ACID DEHYDRGNSE (4) Pancreatitis Code(s): K85.90 - ACUTE PANCREATITIS WITHOUT NECROSIS OR INFECTION, UNSP Qualifiers: Chronicity: acute Pancreatitis type: biliary (5) Rheumatoid arthritis Code(s): M06.9 - RHEUMATOID ARTHRITIS, UNSPECIFIED (6) HLD (hyperlipidemia) Code(s): E78.5 - HYPERLIPIDEMIA, UNSPECIFIED Qualifiers: Hyperlipidemia type: pure hypercholesterolemia Qualified Code(s): E78.00 - Pure hypercholesterolemia, unspecified; E78.0 - Pure hypercholesterolemia (7) HTN (hypertension) Code(s): I10 - ESSENTIAL (PRIMARY) HYPERTENSION Qualifiers: Hypertension type: essential hypertension Qualified Code(s): I10 - Essential (primary) hypertension (8) Hypothyroidism Code(s): E03.9 - HYPOTHYROIDISM, UNSPECIFIED (9) CAD (coronary artery disease) Code(s): I25.10 - ATHSCL HEART DISEASE OF [place] CORONARY ARTERY W/O ANG PCTRS patient has got couple of doses of abx plan continue abx await for further workup surgery to see the patient rest as per primary team
[2017-06-16] MEDS: ASPIRIN COATED 81 MG TABLET.EC PO SCH ×2 (15:25)
--- NOTE | 2017-06-16 15:37 | CONSULT ---
Consult Consult Specialty:: General Surgery Referred by:: Vania Naranjo Reason for Consultation:: acute cholecystitis - History of Present Illness Chief Complaint: epigastric pain, heartburn, N/V History of Present Illness: 66yo F with HTN, HLD, CAD s/p one stent, hypothyroidism, scoliosis, OA and rheumatoid arthritis on Humira, fibromyalgia, h/o colitis, s/p with BTL, s/p L hip replacement, began having migrating/generalized abdominal pain last week and thought she had a stomach bug. She was taking pepto-bismol, but the discomfort persisted, and over the weekend, she began having heartburn and sour taste in her throat after anything she ate. The pain localized more to the epigastric area, and yesterday, she had sweats and dizziness, nausea and vomiting, and more stool than usual, though it was still formed. She spoke to her PMD Dr. Hawkins, and came to the ER. In ER, she had normal wbc, but elevated LFTs, high normal lipase, and US showing multiple gallstones, thickened gb wall and trace pericholecystic fluid. Duct was not dilated. She has received IV fluids, pain medications and antibiotics and was admitted to medicine for acute cholecystitis. Her pain is much better today than yesterday, but she still has a dull pain in the epigastric area and a dull headache. Lipase bumped this morning to just over normal, indicating an element of gallstone pancreatitis, possibly with passing stone. MRCP is still pending; GI is on board. New labs were just drawn. She had her last colonoscopy about 7 yrs ago with "no findings" per pt, and last upper endoscopy years before that. She had a capsule endoscopy many years ago when she had a bout of colitis as well, which started with bleeding. She is due for her Humira now (every 2 weeks), and last took Plavix Thursday (every other day). Both are currently held. She does not take baby aspirin regularly, and has not had any in at least several weeks, though she does take it sometimes. She uses Tramadol 50mg twice daily as needed for back pain. - History Source History Provided By: Patient Limitations to Obtaining History: No Limitations - Past Medical History Cardio/Vascular: Yes: CAD, HTN, Hyperlipdemia Gastrointestinal: Yes: Other ("colitis" many years ago with bleeding) Reproductive: Yes: Postmenopausal ...: No Musculoskeletal: Yes: Chronic low back pain, Osteoarthritis, Other (Scoliosis) Rheumatology: Yes: Fibromyalgia, Rheumatoid Arthritis (on Humira) Endocrine: Yes: Hypothyroidism - Past Surgical History Past Surgical History: Yes: Colonoscopy (last 7 yrs ago, found "nothing"), C- Section, Joint Replacement (Left hip), Stent (Cardiac), Tonsillectomy, Tubal Ligation (at time of ), Upper Endoscopy - Alcohol/Substance Use Hx Alcohol Use: No History of Substance Use: reports: None - Smoking History Smoking history: Former smoker Have you smoked in the past 12 months: No Aproximately how many cigarettes per day: 2 If you are a former smoker, when did you quit?: 40 years ago (smoked lightly for about 10 yrs) - Social History ADL: Independent Occupation: secretarial History of Recent Travel: No Home Medications - Allergies Allergies/Adverse Reactions: Allergies Allergy/AdvReac Type Severity Reaction Status Date / Time quinine sulfate [From [place]] Allergy Rash Verified 06/15/17 14:50 - Home Medications Home Medications: Ambulatory Orders Adalimumab [Humira] 40 mg SQ [id number] #2 08/01/14 Alprazolam 0.5 tablet PO HS PRN #100 08/01/14 Sulfasalazine [Sulfasalazine Dr] 2 tablet PO HS #150 08/01/14 traMADol HCL [Ultram -] 50 mg PO BID #60 08/01/14 Atenolol [Tenormin -] 25 mg PO DAILY 06/15/17 Clopidogrel Bisulfate [Plavix] 75 mg PO Q2D 06/15/17 Fenofibrate 0 mg PO HS 06/15/17 Levothyroxine [Synthroid -] 50 mcg PO ASDIR 06/15/17 Levothyroxine [Synthroid -] 75 mcg PO ASDIR 06/15/17 Olmesartan/Hydrochlorothiazide [Olmesartan-Hctz 40-12.5 mg Tab] 1 each PO DAILY 06/15/17 Home Medications (free text): due for Humira now - has not had in 2 wks; plavix every other day, last on Thursday; does not use daily aspirin Family Disease History - Family Disease History Family Disease History: Diabetes: Grandparent (Paternal-DM, Maternal-Cardiac), Heart Disease: Grandparent, Mother (Triple Bypass), Other: Father (Renal Colic) Other Family History: Paternal Aunt- Cervical Ca; child had gallbladder out Review of Systems - Review of Systems Constitutional: reports: Diaphoresis. denies: Chills, Fever Eyes: reports: Other (uses reading glasses). denies: Recent Change in Vision HENT: denies: Difficult Swallowing, Hearing Loss, Nasal Congestion, Throat Pain Neck: denies: Swollen Glands, Tenderness Cardiovascular: denies: Chest Pain, Palpitations Respiratory: denies: Cough, SOB Gastrointestinal: reports: Abdominal Pain (with hpi), Nausea (with hpi), Vomiting (with hpi), Other (more stool than usual yesterday but not loose). denies: Constipation, Diarrhea Genitourinary: denies: Burning, Dysuria Musculoskeletal: reports: Back Pain. denies: Extremity Pain, Joint Pain, Muscle Pain Integumentary: denies: Change in Color, Rash Neurological: reports: Dizziness (with hpi), Headache (dull today). denies: Syncope Hematology/Lymphatic: denies: Excessive Bleeding, Swollen Glands Physical Exam Vital Signs: Vital Signs Temperature 98.8 F 06/16/17 14:00 Pulse Rate 72 06/16/17 14:00 Respiratory Rate 18 06/16/17 14:00 Blood Pressure 134/57 06/16/17 14:00 O2 Sat by Pulse Oximetry (%) 95 06/15/17 23:46 Constitutional: Yes: Well Nourished, No Distress, Calm Eyes: Yes: Conjunctiva Clear, EOM Intact. No: Sclera Icterus HENT: Yes: Atraumatic, Normocephalic Neck: Yes: Supple, Trachea Midline Cardiovascular: Yes: Regular Rate and Rhythm, Murmur Respiratory: Yes: Regular, CTA Bilaterally Gastrointestinal: Yes: Normal Bowel Sounds, Soft, Hernia (small umbilical with valsalva), Tenderness (mild epigastric and RUQ, no R/G), Tenderness, Epigastrium. No: Distention, Tenderness, Rebound ...Rectal Exam: Yes: Deferred Renal/: No: CVA Tenderness - Left, CVA Tenderness - Right Musculoskeletal: No: Back Pain (no direct tenderness), Joint Stiffness, Joint Swelling Extremities: No: Cool, Cyanosis Edema: No Peripheral Pulses WNL: Yes Integumentary: No: Jaundice, Rash Neurological: Yes: Alert, Oriented Psychiatric: Yes: Alert, Oriented Labs: CBC, BMP 06/16/17 06:30 06/16/17 06:30 CMP Sodium 146 mmol/L (136-145) H 06/16/17 06:30 Potassium 3.4 mmol/L (3.5-5.1) L 06/16/17 06:30 Chloride 110 mmol/L (98-107) H 06/16/17 06:30 Carbon Dioxide 27 mmol/L (21-32) 06/16/17 06:30 Anion Gap 9 (8-16) 06/16/17 06:30 BUN 15 mg/dL (7-18) 06/16/17 06:30 Creatinine 0.8 mg/dL (0.55-1.02) 06/16/17 06:30 Creat Clearance w eGFR > 60 (>60) 06/15/17 15:51 Random Glucose 93 mg/dL (74-106) 06/16/17 06:30 Calcium 9.3 mg/dL (8.5-10.1) 06/16/17 06:30 Total Bilirubin 1.9 mg/dl (0.2-1.0) H 06/15/17 15:51 AST 284 U/L (10-42) H 06/15/17 15:51 ALT 264 U/L (10-40) H 06/15/17 15:51 Alkaline Phosphatase 89 U/L (32-92) 06/15/17 15:51 Total Protein 7.4 g/dl (6.4-8.3) 06/15/17 15:51 Albumin 4.6 g/dl (3.5-5.0) 06/15/17 15:51 Lipase 421 U/L (73-393) H 06/16/17 06:30 lipase up today from 363 new labs just drawn Imaging - Results Ultrasound: Report Reviewed MRI: Pending Problem List - Problems (1) Calculus of gallbladder with acute cholecystitis without obstruction Assessment/Plan: admitted to medicine NPO/IVF repleting K+ pain improved from yesterday lipase bumped, LFTs/labs being repeated now - element of biliary pancreatitis MRCP pending today - pending results and am labs, may need ERCP tomorrow vs could do lap itzel antibiotics per ID pain meds prn Discussed with patient risks, benefits and alternatives of laparoscopic possible open cholecystectomy, including but not limited to bleeding, infection , injury to adjacent structures, bile leak or ductal injury, intraabdominal abscess, hernia need for further procedures; alternatives include antibiotics, delayed or no surgery - risks of this include cholangitis, sepsis, recurrence of cholecystitis, pancreatitis, biliary colic. Patient desires to proceed with operation - will take to OR for above once duct is known to be clear and pancreatitis improving. Informed consent signed for same. Holding OR time for 1pm tomorrow, but if ERCP indicated or pancreatitis worse, will delay surgery until appropriate. Thank you for the opportunity to participate in the care of this patient. Code(s): K80.00 - CALCULUS OF GALLBLADDER W ACUTE CHOLECYST W/O OBSTRUCTION (2) Biliary acute pancreatitis without necrosis or infection Assessment/Plan: lipase bumped today pain overall better MRCP pending see above Code(s): K85.10 - BILIARY ACUTE PANCREATITIS WITHOUT NECROSIS OR INFECTION (3) Rheumatoid arthritis Assessment/Plan: pt normally on Humira - due now for [id number] injection would hold for now - pt can f/u with regional loss prevention manager right after discharge to determine when best to resume to minimize effect on wound healing Code(s): M06.9 - RHEUMATOID ARTHRITIS, UNSPECIFIED Qualifiers: Rheumatoid arthritis location: multiple sites Rheumatoid factor presence: unspecified presence Qualified Code(s): M06.9 - Rheumatoid arthritis, unspecified (4) CAD (coronary artery disease) Assessment/Plan: pt on Plavix every other day, last had 2d ago - hold perioperatively will determine when to resume pending OR findings Code(s): I25.10 - ATHSCL HEART DISEASE OF [place] CORONARY ARTERY W/O ANG PCTRS Qualifiers: Coronary Disease-Associated Artery/Lesion type: [place] artery [place] vs. transplanted heart: [place] heart Associated angina: without angina Qualified Code(s): I25.10 - Atherosclerotic heart disease of [place] coronary artery without angina pectoris (5) HLD (hyperlipidemia) Code(s): E78.5 - HYPERLIPIDEMIA, UNSPECIFIED Qualifiers: Hyperlipidemia type: pure hypercholesterolemia Qualified Code(s): E78.00 - Pure hypercholesterolemia, unspecified; E78.0 - Pure hypercholesterolemia (6) HTN (hypertension) Code(s): I10 - ESSENTIAL (PRIMARY) HYPERTENSION Qualifiers: Hypertension type: essential hypertension Qualified Code(s): I10 - Essential (primary) hypertension (7) Hypothyroidism Code(s): E03.9 - HYPOTHYROIDISM, UNSPECIFIED Qualifiers: Hypothyroidism type: acquired Qualified Code(s): E03.9 - Hypothyroidism, unspecified
[2017-06-16 16:19] LABS: BASO % 0.6 % (0-2.0); EOS % 0.8 % (0-4.5); HEMOGLOBIN 12.2 GM/dL (10.7-15.3); LYMPH % 22.5 % (8-40); MCH 28.6 pg (25.7-33.7); MCHC 32.9 g/dl (32.0-36.0); MEAN PLT VOLUME 9.7 fl (7.5-11.1); MONO % 7.4 % (3.8-10.2); NEUT % 68.7 % (42.8-82.8); PLATELET COUNT 180 K/MM3 (134-434); RBC 4.25 M/mm3 (3.60-5.2); RDW 14.3 % (11.6-15.6); WHITE BLOOD COUNT 5.8 K/mm3 (4.0-10.0)
[2017-06-16 16:59] LABS: ALBUMIN 3.7 g/dl (3.4-5.0); ANION GAP 8 (8-16); BILIRUBIN,DIRECT 0.6 mg/dL (0.0-0.2); CALCIUM 8.7 mg/dL (8.5-10.1); CHLORIDE 113 mmol/L (98-107); CO2 26 mmol/L (21-32); CREATININE 0.6 mg/dL (0.55-1.02); GLUCOSE,RANDOM 73 mg/dL (74-106); POTASSIUM 3.7 mmol/L (3.5-5.1); SGPT/ALT 260 U/L (12-78); SODIUM 147 mmol/L (136-145)
[2017-06-16] MEDS: PIPERACILLIN/TAZOB 3.375 GM 3.375 GM in DEXTROSE 5%-WATER - 100 ML IVPB SCH (18:38)
[2017-06-16 18:39] LABS: BILIRUBIN,TOTAL 1.4 mg/dL (0.2-1.0); LIPASE 319 U/L (73-393); TOT PROT 6.5 g/dl (6.4-8.2)
[2017-06-16 18:40] LABS: ALK PHOS 92 U/L (45-117); SGOT/AST 163 U/L (15-37)
[2017-06-16] MEDS ORDERED: D5-1/2NS+20 MEQ KCL - 20 MEQ/1,000 ML INFUS.BAG IV SCH (19:15)
[2017-06-16 22:49] LABS: BLOOD UREA NITROGEN 13 mg/dL (7-18)
[2017-06-17] MEDS: MORPHINE SULFATE 10 MG/1 ML *VIAL IVPUSH PRN ×5 (00:36→22:16)
[2017-06-17] MEDS: PIPERACILLIN/TAZOB 3.375 GM 3.375 GM in DEXTROSE 5%-WATER - 100 ML IVPB SCH ×3 (01:53→17:17)
[2017-06-17] MEDS ORDERED: LEVOTHYROXINE NA 75 MCG TABLET (FP) PO SCH (07:00)
[2017-06-17 08:17] LABS: BASO % 0.6 % (0-2.0); EOS % 1.8 % (0-4.5); HEMATOCRIT 36.2 % (32.4-45.2); HEMOGLOBIN 11.8 GM/dL (10.7-15.3); LYMPH % 22.8 % (8-40); MCH 28.3 pg (25.7-33.7); MCHC 32.5 g/dl (32.0-36.0); MEAN CELL VOLUME 86.9 fl (80-96); MEAN PLT VOLUME 9.2 fl (7.5-11.1); NEUT % 67.8 % (42.8-82.8); PLATELET COUNT 162 K/MM3 (134-434); RBC 4.17 M/mm3 (3.60-5.2); RDW 13.9 % (11.6-15.6); WHITE BLOOD COUNT 5.8 K/mm3 (4.0-10.0)
[2017-06-17 08:24] LABS: INR 1.01 (0.82-1.09); PROTHROMBIN TIME (PATIENT) 11.4 SEC (9.98-11.88)
[2017-06-17 08:40] LABS: ALBUMIN 3.6 g/dl (3.4-5.0); ANION GAP 11 (8-16); BLOOD UREA NITROGEN 12 mg/dL (7-18); CALCIUM 8.6 mg/dL (8.5-10.1); CHLORIDE 111 mmol/L (98-107); CO2 23 mmol/L (21-32); GLUCOSE,RANDOM 65 mg/dL (74-106); MAGNESIUM 1.8 mg/dL (1.8-2.4); POTASSIUM 3.6 mmol/L (3.5-5.1); SODIUM 145 mmol/L (136-145)
[2017-06-17 08:46] LABS: ALK PHOS 82 U/L (45-117); BILIRUBIN,DIRECT 0.4 mg/dL (0.0-0.2); CREATININE 0.6 mg/dL (0.55-1.02); SGOT/AST 100 U/L (15-37); SGPT/ALT 196 U/L (12-78); TOT PROT 6.4 g/dl (6.4-8.2)
[2017-06-17 08:49] LABS: LIPASE 331 U/L (73-393)
[2017-06-17] MEDS ORDERED: PT OWN MED DRAWER 7, Y5N ONE ×2 (09:39→16:56)
[2017-06-17] MEDS: ATENOLOL 25 MG TABLET (FP) PO SCH (09:45)
[2017-06-17] MEDS: VALSARTAN 160 MG TABLET (UD) PO SCH (09:45)
--- NOTE | 2017-06-17 10:43 | PN ---
Progress Note, Physician History of Present Illness: No events. MCRP results noted. Nausea+, pain is well controlled. - Current Medication List Current Medications: Active Medications Atenolol (Tenormin -) 25 mg PO DAILY [facility] Last Admin: 06/17/17 09:45 Dose: 25 mg Piperacillin Sod/Tazobactam (Sod 3.375 gm/ Dextrose) 100 mls @ 100 mls/hr IVPB Q8H-IV GLORIA PRN Reason: Protocol Last Admin: 06/17/17 09:45 Dose: 100 mls/hr Potassium Chloride/Dextrose/Sod Cl (D5-1/2ns+20 Meq Kcl -) 20 meq in 1,000 mls @ 100 mls/hr IV ASDIR [facility] Last Admin: 06/16/17 21:59 Dose: Not Given Potassium Chloride 10 meq/ (Sodium Chloride) 105 mls @ 100 mls/hr IVPB Q60M [facility] Stop: 06/17/17 13:59 Levothyroxine Sodium (Synthroid -) 75 mcg PO Q3D@0700 [facility] Last Admin: 06/16/17 06:00 Dose: 75 mcg Levothyroxine Sodium (Synthroid -) 75 mcg PO Q3D@0700 [facility] Last Admin: 06/17/17 06:37 Dose: Not Given Levothyroxine Sodium (Synthroid -) 50 mcg PO Q3D@0700 [facility] Morphine Sulfate (Morphine Injection -) 4 mg IVPUSH Q6H PRN PRN Reason: PAIN LEVEL 6-10 Last Admin: 06/17/17 06:38 Dose: 4 mg Ondansetron HCl (Zofran Injection) 4 mg IVPUSH Q4H PRN PRN Reason: NAUSEA AND/OR VOMITING Valsartan (Diovan -) 320 mg PO DAILY [facility] Last Admin: 06/17/17 09:45 Dose: Not Given - Objective Vital Signs: Vital Signs Temperature 98.9 F 06/17/17 06:00 Pulse Rate 66 06/17/17 06:00 Respiratory Rate 20 06/17/17 06:00 Blood Pressure 146/79 06/17/17 06:00 O2 Sat by Pulse Oximetry (%) 95 06/15/17 23:46 Constitutional: Yes: Well Nourished, No Distress, Calm Eyes: Yes: Conjunctiva Clear HENT: Yes: Atraumatic Neck: Yes: Supple Cardiovascular: Yes: Regular Rate and Rhythm Respiratory: Yes: Regular Gastrointestinal: Yes: Soft, Tenderness, Epigastrium. No: Distention Neurological: Yes: Alert, Oriented Labs: CBC, BMP 06/17/17 06:45 06/17/17 06:45 INR, PTT INR 1.01 (0.82-1.09) 06/17/17 06:45 CBCD WBC 5.8 K/mm3 (4.0-10.0) 06/17/17 06:45 RBC 4.17 M/mm3 (3.60-5.2) 06/17/17 06:45 Hgb 11.8 GM/dL (10.7-15.3) 06/17/17 06:45 Hct 36.2 % (32.4-45.2) 06/17/17 06:45 MCV 86.9 fl (80-96) 06/17/17 06:45 MCHC 32.5 g/dl (32.0-36.0) 06/17/17 06:45 RDW 13.9 % (11.6-15.6) 06/17/17 06:45 Plt Count 162 K/MM3 (134-434) 06/17/17 06:45 MPV 9.2 fl (7.5-11.1) 06/17/17 06:45 CMP Sodium 145 mmol/L (136-145) 06/17/17 06:45 Potassium 3.6 mmol/L (3.5-5.1) 06/17/17 06:45 Chloride 111 mmol/L (98-107) H 06/17/17 06:45 Carbon Dioxide 23 mmol/L (21-32) 06/17/17 06:45 Anion Gap 11 (8-16) 06/17/17 06:45 BUN 12 mg/dL (7-18) 06/17/17 06:45 Creatinine 0.6 mg/dL (0.55-1.02) 06/17/17 06:45 Creat Clearance w eGFR > 60 (>60) 06/16/17 15:00 Calcium 8.6 mg/dL (8.5-10.1) 06/17/17 06:45 Total Bilirubin 1.0 mg/dL (0.2-1.0) D 06/17/17 06:45 AST 100 U/L (15-37) H 06/17/17 06:45 ALT 196 U/L (12-78) H 06/17/17 06:45 Alkaline Phosphatase 82 U/L (45-117) 06/17/17 06:45 Total Protein 6.4 g/dl (6.4-8.2) 06/17/17 06:45 Albumin 3.6 g/dl (3.4-5.0) 06/17/17 06:45 - ....Imaging MRI: Report Reviewed Problem List - Problems (1) Cholelithiasis Code(s): K80.20 - CALCULUS OF GALLBLADDER W/O CHOLECYSTITIS W/O OBSTRUCTION Qualifiers: Cholelithiasis location: gallbladder Cholecystitis acuity: acute Biliary obstruction: without biliary obstruction (2) Transaminitis Code(s): R74.0 - NONSPEC ELEV OF LEVELS OF TRANSAMNS & LACTIC ACID DEHYDRGNSE (3) Cholestasis Code(s): K83.1 - OBSTRUCTION OF BILE DUCT (4) Acute cholecystitis Code(s): K81.0 - ACUTE CHOLECYSTITIS Assessment/Plan The patient is aware, a cholecystectomy is planned for this afternoon.
--- NOTE | 2017-06-17 10:43 | PN ---
Progress Note, Physician Chief Complaint: No acute events. Pt lying in bed in no acute distress, reports intermittent epigastric abdominal pain controlled with morphine and nausea, improving. Denies chest pain, sob, vomiting/diarrhea - Current Medication List Current Medications: Active Medications Atenolol (Tenormin -) [address] [facility] Last Admin: 06/17/17 09:45 Dose: 25 mg Piperacillin Sod/Tazobactam (Sod 3.375 gm/ Dextrose) 100 mls @ 100 mls/hr IVPB Q8H-IV GLORAI PRN Reason: Protocol Last Admin: 06/17/17 09:45 Dose: 100 mls/hr Potassium Chloride/Dextrose/Sod Cl (D5-1/2ns+20 Meq Kcl -) 20 meq in 1,000 mls @ 100 mls/hr IV ASDIR [facility] Last Admin: 06/16/17 21:59 Dose: Not Given Potassium Chloride 10 meq/ (Sodium Chloride) 105 mls @ 100 mls/hr IVPB Q60M [facility] Stop: 06/17/17 13:59 Levothyroxine Sodium (Synthroid -) 75 mcg PO Q3D@0700 [facility] Last Admin: 06/16/17 06:00 Dose: 75 mcg Levothyroxine Sodium (Synthroid -) 75 mcg PO Q3D@0700 [facility] Last Admin: 06/17/17 06:37 Dose: Not Given Levothyroxine Sodium (Synthroid -) 50 mcg PO Q3D@0700 [facility] Morphine Sulfate (Morphine Injection -) 4 mg IVPUSH Q6H PRN PRN Reason: PAIN LEVEL 6-10 Last Admin: 06/17/17 06:38 Dose: 4 mg Ondansetron HCl (Zofran Injection) 4 mg IVPUSH Q4H PRN PRN Reason: NAUSEA AND/OR VOMITING Valsartan (Diovan -) [address] [facility] Last Admin: 06/17/17 09:45 Dose: Not Given - Objective Vital Signs: Vital Signs Temperature 98.9 F 06/17/17 06:00 Pulse Rate 66 06/17/17 06:00 Respiratory Rate 20 06/17/17 06:00 Blood Pressure 146/79 06/17/17 06:00 O2 Sat by Pulse Oximetry (%) 95 06/15/17 23:46 Constitutional: Yes: Well Nourished, No Distress, Calm Cardiovascular: Yes: WNL, Regular Rate and Rhythm, S1, S2. No: Gallop, Murmur, Rub Respiratory: Yes: WNL, Regular, CTA Bilaterally. No: Rales, Rhonchi, SOB, Tachypnea, Wheezes Gastrointestinal: Yes: Normal Bowel Sounds, Soft, Abdomen, Obese, Tenderness ( epigastric). No: Distention Edema: No Neurological: Yes: WNL, Alert, Oriented Psychiatric: Yes: WNL, Alert, Oriented Labs: CBC, BMP 06/17/17 06:45 06/17/17 06:45 INR, PTT INR 1.01 (0.82-1.09) 06/17/17 06:45 - ....Imaging MRI: Report Reviewed Problem List - Problems (1) Acute cholecystitis Code(s): K81.0 - ACUTE CHOLECYSTITIS (2) Cholelithiasis Code(s): K80.20 - CALCULUS OF GALLBLADDER W/O CHOLECYSTITIS W/O OBSTRUCTION Qualifiers: Cholelithiasis location: gallbladder Cholecystitis acuity: acute Biliary obstruction: without biliary obstruction (3) Transaminitis Code(s): R74.0 - NONSPEC ELEV OF LEVELS OF TRANSAMNS & LACTIC ACID DEHYDRGNSE (4) Pancreatitis Code(s): K85.90 - ACUTE PANCREATITIS WITHOUT NECROSIS OR INFECTION, UNSP Qualifiers: Chronicity: acute Pancreatitis type: biliary (5) Rheumatoid arthritis Code(s): M06.9 - RHEUMATOID ARTHRITIS, UNSPECIFIED Qualifiers: Rheumatoid arthritis location: multiple sites Rheumatoid factor presence: unspecified presence Qualified Code(s): M06.9 - Rheumatoid arthritis, unspecified (6) HLD (hyperlipidemia) Code(s): E78.5 - HYPERLIPIDEMIA, UNSPECIFIED Qualifiers: Hyperlipidemia type: pure hypercholesterolemia Qualified Code(s): E78.00 - Pure hypercholesterolemia, unspecified; E78.0 - Pure hypercholesterolemia (7) HTN (hypertension) Code(s): I10 - ESSENTIAL (PRIMARY) HYPERTENSION Qualifiers: Hypertension type: essential hypertension Qualified Code(s): I10 - Essential (primary) hypertension (8) Hypothyroidism Code(s): E03.9 - HYPOTHYROIDISM, UNSPECIFIED Qualifiers: Hypothyroidism type: acquired Qualified Code(s): E03.9 - Hypothyroidism, unspecified (9) CAD (coronary artery disease) Code(s): I25.10 - ATHSCL HEART DISEASE OF [place] CORONARY ARTERY W/O ANG PCTRS Qualifiers: Coronary Disease-Associated Artery/Lesion type: [place] artery [place] vs. transplanted heart: [place] heart Associated angina: without angina Qualified Code(s): I25.10 - Atherosclerotic heart disease of [place] coronary artery without angina pectoris (10) Hypokalemia Code(s): E87.6 - HYPOKALEMIA Assessment/Plan (1) Acute cholecystitis Assessment/Plan: lfts trending down, lipase wnl s/p cholecystectomy case discussed with d/c home tomorrow GI/ID/surgery following Code(s): K81.0 - ACUTE CHOLECYSTITIS (2) Cholelithiasis Assessment/Plan: As above Code(s): K80.20 - CALCULUS OF GALLBLADDER W/O CHOLECYSTITIS W/O OBSTRUCTION Qualifiers: Cholelithiasis location: gallbladder Cholecystitis acuity: acute Biliary obstruction: without biliary obstruction (3) Transaminitis Assessment/Plan: As above Code(s): R74.0 - NONSPEC ELEV OF LEVELS OF TRANSAMNS & LACTIC ACID DEHYDRGNSE (4) Pancreatitis Assessment/Plan: improved, lipase wnl today will monitor Code(s): K85.90 - ACUTE PANCREATITIS WITHOUT NECROSIS OR INFECTION, UNSP Qualifiers: Chronicity: acute Pancreatitis type: biliary (5) Rheumatoid arthritis Assessment/Plan: stable hold humira for 2-4 weeks f/u with outpt captain/check airman Code(s): M06.9 - RHEUMATOID ARTHRITIS, UNSPECIFIED Qualifiers: Rheumatoid arthritis location: multiple sites Rheumatoid factor presence: unspecified presence Qualified Code(s): M06.9 - Rheumatoid arthritis, unspecified (6) HLD (hyperlipidemia) Assessment/Plan: holding Fenofibrate Code(s): E78.5 - HYPERLIPIDEMIA, UNSPECIFIED Qualifiers: Hyperlipidemia type: pure hypercholesterolemia Qualified Code(s): E78.00 - Pure hypercholesterolemia, unspecified; E78.0 - Pure hypercholesterolemia (7) HTN (hypertension) Assessment/Plan: continue Atenolol hold Olmesartan/Hydrochlorothiazide will monitor Code(s): I10 - ESSENTIAL (PRIMARY) HYPERTENSION Qualifiers: Hypertension type: essential hypertension Qualified Code(s): I10 - Essential (primary) hypertension (8) Hypothyroidism Assessment/Plan: stable continue levothyroxine Code(s): E03.9 - HYPOTHYROIDISM, UNSPECIFIED Qualifiers: Hypothyroidism type: acquired Qualified Code(s): E03.9 - Hypothyroidism, unspecified (9) CAD (coronary artery disease) Assessment/Plan: stable d/c plavix and start pt on aspirin 3 days post surgery Code(s): I25.10 - ATHSCL HEART DISEASE OF [place] CORONARY ARTERY W/O ANG PCTRS Qualifiers: Coronary Disease-Associated Artery/Lesion type: [place] artery [place] vs. transplanted heart: [place] heart Associated angina: without angina Qualified Code(s): I25.10 - Atherosclerotic heart disease of [place] coronary artery without angina pectoris (10) Hypokalemia Assessment/Plan: k-3.6 30meq iv kcl ordered monitor labs Code(s): E87.6 - HYPOKALEMIA dispo: home tomorrow if pt tolerates diet and progresses well post op
[2017-06-17] MEDS ORDERED: morphine CARPU-JECT 2 MG/1 ML DISP.SYRIN IVPUSH ONE (11:00)
[2017-06-17] MEDS: POTASSIUM CHLORIDE 10 MEQ in SODIUM CHLORIDE 100 ML IVPB SCH ×2 (11:21→15:56)
[2017-06-17] MEDS ORDERED: MIDAZOLAM HCL 2 MG/2 ML SINGLE DOSE VIAL ONE (12:28)
[2017-06-17] MEDS ORDERED: CEFOXITIN SODIUM 1 GM IVPB ONE (12:37)
[2017-06-17] MEDS ORDERED: PROPOFOL 20 ML ONE (12:38)
[2017-06-17] MEDS ORDERED: ROCURONIUM BROMIDE 50 MG/5 ML VIAL ONE (12:38)
--- NOTE | 2017-06-17 12:40 | EKG ---
Test Reason : Blood Pressure : / mmHG Vent. Rate : 063 BPM Atrial Rate : 063 BPM P-R Int : 176 ms QRS Dur : 168 ms QT Int : 466 ms P-R-T Axes : 040 -32 104 degrees QTc Int : 476 ms NORMAL SINUS RHYTHM LEFT AXIS DEVIATION LEFT BUNDLE BRANCH BLOCK ABNORMAL ECG NO PREVIOUS ECGS AVAILABLE Confirmed by GLADYS DENSON MD ([id number]) on 06/17/2017 12:40:19 PM Referred By: TRISTAN Confirmed By:GLADYS DENSON MD
[2017-06-17] MEDS ORDERED: cefOXitin SODIUM 1 GM VIAL (RESTRICTED TO ID) IVPB ONE (12:43)
[2017-06-17] MEDS ORDERED: BUPIVACAINE HCL/PF 0.5% (5MG/ML) 10 ML VIAL IJ ONE ×2 (13:12→13:36)
[2017-06-17] MEDS ORDERED: NEOSTIGMINE METHYLSULFATE 0.5 MG/ML - 10 ML MDV ONE (13:27)
[2017-06-17] MEDS ORDERED: GLYCOPYRROLATE 0.2 MG/1 ML VIAL ONE (13:28)
[2017-06-17] MEDS ORDERED: DEXAMETHASONE SOD PHOSPHATE 4 MG/1 ML VIAL ONE (13:28)
[2017-06-17] MEDS ORDERED: LIDOCAINE HCL/PF 2% SDV 5ML VIAL ONE (13:28)
[2017-06-17] MEDS ORDERED: KETOROLAC TROMETHAMINE 30 MG/1 ML VIAL ONE (13:28)
--- NOTE | 2017-06-17 14:02 | OP ---
Operative Note - Note: Operative Date: 06/17/17 Pre-Operative Diagnosis: acute cholecystitis Operation: laparoscopic cholecystectomy Findings: distended, inflamed gallbladder; critical view identified Post-Operative Diagnosis: Same as Pre-op Surgeon: Chris Parra Trustee Of Estate: Santiago Hugo Anesthesiologist/RESPIRATORY CARE INSTRUCTOR: Dilcia Cueva MD Anesthesia: General, Local (20ml 0.5% marcaine) Specimens Removed: gallbladder to pathology Estimated Blood Loss (mls): 5 Fluid Volume Replaced (mls): 800 (crystalloid) Operative Report Dictated: Yes
[2017-06-17] MEDS ORDERED: ACETAMINOPHEN 325 MG TABLET (FP) PO PRN ×2 (14:08→16:05)
[2017-06-17] MEDS ORDERED: IBUPROFEN 600 MG TABLET (FP) PO PRN ×2 (14:09→14:30)
[2017-06-17] MEDS ORDERED: traMADol HCL 50 MG TABLET PO PRN ×2 (14:10→14:30)
[2017-06-17] MEDS ORDERED: MORPHINE SULFATE 10 MG/1 ML *VIAL IVPUSH PRN (14:12)
[2017-06-17] MEDS ORDERED: LACTATED RINGERS SOLUTION 1,000 ML IV SCH (14:15)
[2017-06-17] MEDS ORDERED: D5-1/2NS+20 MEQ KCL - 20 MEQ/1,000 ML INFUS.BAG IV SCH (14:30)
[2017-06-17] MEDS ORDERED: ONDANSETRON 4 MG/2 ML VIAL IVPUSH PRN (14:30)
--- NOTE | 2017-06-17 14:31 | PN ---
Progress Note, Physician History of Present Illness: doing well post op slightly groggy - Objective Vital Signs: Vital Signs Temperature 98.4 F 06/17/17 13:53 Pulse Rate 65 06/17/17 13:53 Respiratory Rate 14 06/17/17 13:53 Blood Pressure 118/67 06/17/17 13:53 O2 Sat by Pulse Oximetry (%) 100 06/17/17 13:53 Constitutional: Yes: No Distress, Calm Cardiovascular: Yes: Regular Rate and Rhythm Respiratory: Yes: Regular Gastrointestinal: Yes: Normal Bowel Sounds, Soft Musculoskeletal: Yes: WNL Extremities: Yes: WNL Wound/Incision: Yes: Clean/Dry Neurological: Yes: Alert, Oriented Labs: CBC, BMP 06/17/17 06:45 06/17/17 06:45 INR, PTT INR 1.01 (0.82-1.09) 06/17/17 06:45 Assessment/Plan Problem List - Problems (1) Acute cholecystitis Code(s): K81.0 - ACUTE CHOLECYSTITIS (2) Cholelithiasis Code(s): K80.20 - CALCULUS OF GALLBLADDER W/O CHOLECYSTITIS W/O OBSTRUCTION Qualifiers: Cholelithiasis location: gallbladder Cholecystitis acuity: acute Biliary obstruction: without biliary obstruction (3) Transaminitis Code(s): R74.0 - NONSPEC ELEV OF LEVELS OF TRANSAMNS & LACTIC ACID DEHYDRGNSE (4) Pancreatitis Code(s): K85.90 - ACUTE PANCREATITIS WITHOUT NECROSIS OR INFECTION, UNSP Qualifiers: Chronicity: acute Pancreatitis type: biliary (5) Rheumatoid arthritis Code(s): M06.9 - RHEUMATOID ARTHRITIS, UNSPECIFIED (6) HLD (hyperlipidemia) Code(s): E78.5 - HYPERLIPIDEMIA, UNSPECIFIED Qualifiers: Hyperlipidemia type: pure hypercholesterolemia Qualified Code(s): E78.00 - Pure hypercholesterolemia, unspecified; E78.0 - Pure hypercholesterolemia (7) HTN (hypertension) Code(s): I10 - ESSENTIAL (PRIMARY) HYPERTENSION Qualifiers: Hypertension type: essential hypertension Qualified Code(s): I10 - Essential (primary) hypertension (8) Hypothyroidism Code(s): E03.9 - HYPOTHYROIDISM, UNSPECIFIED (9) CAD (coronary artery disease) Code(s): I25.10 - ATHSCL HEART DISEASE OF [place] CORONARY ARTERY W/O ANG PCTRS patient has got couple of doses of abx plan continue abx once patient starts po can stop abx
[2017-06-17] MEDS ORDERED: MAGNESIUM SULF 50% (8.12 MEQ/2 ML-1 GM VIAL) IVPB ONE (14:42)
[2017-06-17] MEDS ORDERED: MAGNESIUM SULFATE IN WATER 2 GM/50 ML IVPB IVPB ONE (16:15)
--- NOTE | 2017-06-17 18:15 | PN ---
Progress Note (short form) - Note Progress Note: CC: pre-op clearance S: s/p surgery today, no complications. Pain controlled. sipping water. IVF. no cp, palps, dizziness, sob. Current Medications Acetaminophen (Tylenol -) 650 mg PO Q6H PRN PRN Reason: PAIN Atenolol (Tenormin -) 25 mg PO DAILY [facility] Potassium Chloride/Dextrose/Sod Cl (D5-1/2ns+20 Meq Kcl -) 20 meq in 1,000 mls @ 100 mls/hr IV ASDIR [facility] Last Admin: 06/17/17 15:00 Dose: 50 mls Piperacillin Sod/Tazobactam (Sod 3.375 gm/ Dextrose) 100 mls @ 200 mls/hr IVPB Q8H-IV GLORIA PRN Reason: Protocol Last Admin: 06/17/17 17:17 Dose: 200 mls/hr Ibuprofen (Motrin -) 600 mg PO Q6H PRN PRN Reason: PAIN Levothyroxine Sodium (Synthroid -) 75 mcg PO ASDIR@0700 [facility] Levothyroxine Sodium (Synthroid -) 50 mcg PO Q3D@0700 [facility] Morphine Sulfate (Morphine Injection -) 2 mg IVPUSH Q3H PRN PRN Reason: BREAKTHROUGH PAIN - PO first Ondansetron HCl (Zofran Injection) 4 mg IVPUSH Q4H PRN PRN Reason: NAUSEA AND/OR VOMITING Tramadol HCl (Ultram -) 50 mg PO Q8H PRN PRN Reason: breakthrough pain Valsartan (Diovan -) 320 mg PO DAILY [facility] Vital Signs - 24 hr 06/16/17 06/17/17 06/17/17 21:00 00:00 06:00 Temperature 98.2 F 98.9 F Pulse Rate 67 66 Respiratory 20 20 20 Rate Blood Pressure 126/64 146/79 O2 Sat by Pulse Oximetry (%) 06/17/17 06/17/17 06/17/17 08:00 10:00 13:53 Temperature 98 F 98.4 F Pulse Rate 66 65 Respiratory 18 14 Rate Blood Pressure 130/51 118/67 O2 Sat by Pulse 95 100 Oximetry (%) 06/17/17 06/17/17 06/17/17 14:00 14:15 14:30 Temperature Pulse Rate 601 H 59 L 62 Respiratory 60 H 12 14 Rate Blood Pressure 134/47 117/51 120/51 O2 Sat by Pulse 100 97 Oximetry (%) 06/17/17 06/17/17 06/17/17 14:45 15:00 15:15 Temperature Pulse Rate 60 60 59 L Respiratory 12 12 12 Rate Blood Pressure 103/48 105/51 119/53 O2 Sat by Pulse 95 95 94 L Oximetry (%) 06/17/17 15:30 Temperature 97.6 F Pulse Rate 64 Respiratory 18 Rate Blood Pressure 134/55 O2 Sat by Pulse 94 L Oximetry (%) Intake & Output 06/15/17 06/16/17 06/17/17 06/18/17 07:59 07:59 07:59 07:59 Intake Total 600 2650 1000 Output Total 5 Balance 600 2650 995 Weight 168 lb 14.4 oz NAD, calm JVD flat, neck supple ctab, nl effort rrr nl s1, s2 no m/r/g + bs soft nd. mild ttp of abd ext without e/c/c + dp/pt aaox3 no carotid bruits no jaundice, diaphoresis CBC, BMP 06/17/17 06:45 06/17/17 06:45 LHC '08: ZOHRA cypher to [employer] of RCA, resid 50-60% mLAD, nl EF/EDP MIBI 05/22: 4:49min, LBBB throughout, no isch, nl (small) LV, nl EF/wall motion Echo 02/18: nl LV/RV; pseudonormal; borderline LAE, valves WNL A/P 66 y/o with h/o CAD s/p mRCA cypher stent '08 with residual mLAD disease, known LBBB, htn, hl, RA on Humira, fibromyalgia, hypothyroid who p/w abdominal pain, now with suspicion for acute cholecystitis/possible developing pancreatitis --> likely requiring surgical intervention. Pre-op clearance s/p lap itzel 06/17. - Patient was asx from CV perspective, did not recommend further testing prior to surgery. Based on RCRI 1, patient estimated to have a low risk for mariano- operative CV events. Patient counseled on risk. - Patient with history of long cypher stent to mRCA in 2007. Given the length of time since stenting, there is likely no significant difference in rate of very late stent thrombosis in this first generation stent (even despite length of 33 mm) in comparison to a patient with newer zohra (and overall risk is low in general.) --> No strong indication for DAPT --> Ok to hold plavix mariano- operatively. In regards to cessation of ASA mariano-operatively. --> There is general consensus to continue ASA monotherapy mariano-operatively for patients with history of prior stent due to the presumed increased risk of CV events with cessation of therapy (including not just in-stent thrombosis, but additionally ME etc..). However, there is limited data regarding specific event rates/outcomes and so the surgical risk of bleeding must be considered. Discussed case with surgery --> significant concern for risk of bleeding/ adverse events if low dose asa were to be continued mariano-operatively ( especially b/c patient also recently took plavix). Counseled that although the preference is to continue asa, it is reasonable to hold ASA if the surgical risk of continuing asa therapy is high ie. the risk of adverse surgical outcome is presumably higher than risk of adverse CV event. --> Will hold ASA per surgery recs --> low dose ASA to be resumed when cleared by surgery. - bp/hr well controlled. - Avoid nsaids if possible. HL/CAD s/p mRCA cypher stent '08 with residual mLAD disease --> subsequent stress testing negative for ischemia - see discussion above regarding mariano-operative mgm't of anti-platelet therapy. - has been on DAPT therapy (although endorsed to myself and surgeon that she takes plavix qod and is not always adherent to asa.) Last plavix was thursday. - pt free of anginal sx's. - has had intolerance to statins and zetia, declined PCSK-9. Currently managed on fenofibrate, but would defer at this time given lft abnormalities. Can resume once LFT's normalize. - con't atenolol - lyte repletion prn. htn - currently reasonably controlled on atenolol and diovan (on benicar at home) Ok to continue to hold hctz while on IVF. - pain control per pmd/gi/surg abd pain/acute cholecystitis - s/p lap itzel - mgm't per pmd/gi/surg
[2017-06-17 19:52] LABS: BASO % 0.2 % (0-2.0); EOS % 0.1 % (0-4.5); HEMATOCRIT 35.2 % (32.4-45.2); HEMOGLOBIN 11.6 GM/dL (10.7-15.3); LYMPH % 9.3 % (8-40); MCH 28.8 pg (25.7-33.7); MEAN CELL VOLUME 87.4 fl (80-96); MEAN PLT VOLUME 9.4 fl (7.5-11.1); MONO % 2.5 % (3.8-10.2); NEUT % 87.9 % (42.8-82.8); PLATELET COUNT 181 K/MM3 (134-434); RBC 4.03 M/mm3 (3.60-5.2); RDW 13.8 % (11.6-15.6); WHITE BLOOD COUNT 6.7 K/mm3 (4.0-10.0)
[2017-06-18] MEDS ORDERED: PT OWN MED DRAWER 7, Y5N ONE ×2 (01:05→09:26)
[2017-06-18] MEDS: PIPERACILLIN/TAZOB 3.375 GM 3.375 GM in DEXTROSE 5%-WATER - 100 ML IVPB SCH ×2 (01:35→09:51)
[2017-06-18] MEDS ORDERED: LEVOTHYROXINE NA 50 MCG TABLET (FP) PO SCH (07:00)
[2017-06-18] MEDS ORDERED: LEVOTHYROXINE NA 75 MCG TABLET (FP) PO SCH (07:00)
[2017-06-18 07:05] LABS: HEMATOCRIT 38.2 % (32.4-45.2); HEMOGLOBIN 12.6 GM/dL (10.7-15.3); MCH 28.5 pg (25.7-33.7); MCHC 32.9 g/dl (32.0-36.0); MEAN CELL VOLUME 86.8 fl (80-96); MEAN PLT VOLUME 9.4 fl (7.5-11.1); PLATELET COUNT 190 K/MM3 (134-434); RBC 4.41 M/mm3 (3.60-5.2); RDW 13.5 % (11.6-15.6); WHITE BLOOD COUNT 8.9 K/mm3 (4.0-10.0)
[2017-06-18 08:07] LABS: ALBUMIN 3.7 g/dl (3.4-5.0); ANION GAP 7 (8-16); BLOOD UREA NITROGEN 15 mg/dL (7-18); CALCIUM 8.5 mg/dL (8.5-10.1); CHLORIDE 108 mmol/L (98-107); CO2 28 mmol/L (21-32); CREATININE 0.9 mg/dL (0.55-1.02); GLUCOSE,RANDOM 94 mg/dL (74-106); MAGNESIUM 2.3 mg/dL (1.8-2.4); PHOSPHOROUS 1.9 mg/dL (2.5-4.9); SGOT/AST 70 U/L (15-37); SGPT/ALT 160 U/L (12-78); SODIUM 143 mmol/L (136-145)
[2017-06-18 08:09] LABS: ALK PHOS 78 U/L (45-117); TOT PROT 6.8 g/dl (6.4-8.2)
[2017-06-18 08:22] LABS: LIPASE 339 U/L (73-393)
--- NOTE | 2017-06-18 09:05 | DS ---
Physical Examination Vital Signs: Vital Signs Temperature 99.2 F 06/18/17 06:00 Pulse Rate 55 L 06/18/17 06:00 Respiratory Rate 20 06/18/17 06:00 Blood Pressure 129/58 06/18/17 06:00 O2 Sat by Pulse Oximetry (%) 94 L 06/17/17 21:00 Constitutional: Yes: Well Nourished, No Distress, Calm Cardiovascular: Yes: WNL, Regular Rate and Rhythm. No: Bruit, Gallop, Murmur Respiratory: Yes: WNL, Regular, CTA Bilaterally. No: SOB, SOB on Exertion, Tachypnea, Wheezes Gastrointestinal: Yes: WNL, Normal Bowel Sounds, Soft, Other. No: Distention, Tenderness Extremities: Yes: WNL Edema: No Wound/Incision: Yes: Clean/Dry, Dressing Dry and Intact Neurological: Yes: WNL, Alert, Oriented Psychiatric: Yes: WNL, Alert, Oriented Labs: CBC, BMP 06/18/17 06:00 06/18/17 06:00 Discharge Summary Reason For Visit: ACUTE CHOLECYSTITIS Current Active Problems Abdominal pain, epigastric (Acute) Acute cholecystitis (Acute) Biliary acute pancreatitis without necrosis or infection (Acute) CAD (coronary artery disease) (Acute) Calculus of gallbladder with acute cholecystitis without obstruction (Acute) Cholelithiasis (Acute) Cholestasis (Acute) HLD (hyperlipidemia) (Acute) HTN (hypertension) (Acute) Hypokalemia (Acute) Hypothyroidism (Acute) Pancreatitis (Acute) Rheumatoid arthritis (Acute) Transaminitis (Acute) Hospital Course: is 66 year old female with pmh of htn, RA, hypothyroidism, and CAD who was admitted with acute cholecystitis s/p lap cholecystectomy. Her stay was uneventful. Pt is tolerating diet, pain adequately controlled, ambulating without difficulty. Pt advised to follow up with pcp , steam press tender, and surgeon . Condition: Good - Instructions Diet, Activity, Other Instructions: May resume Aspirin Thursday Hold Humira(2-4weeks) until f/u with Postoperative instructions: You had a laparoscopic cholecystectomy on 06/17/[address] Chris Parra of [facility]. Activity: Resume your usual activities gradually, but no heavy exertion or lifting more than 10-20 pounds for 1 month. Remove dressings 48 hours after surgery; sticky tapes underneath will fall off by themselves. You may shower daily starting then, just pat the incision areas dry. No bath or swimming ( submerging incisions under water) until skin incisions have healed. Sponge bathing is fine. Eat lightly at first, but advance to your usual diet as tolerated. Pain: For pain, you may use Tylenol (acetaminophen) every 6 hours each as needed. If you need something more for severe pain, use Tramadol up to 3 times a day as needed. Do not take more than 4000mg of acetaminophen in a day. Take medications as prescribed or indicated on the labeling. Follow-up: Call Dr. Parra's office at [phone] to make your postop appointment (Thursday ~2 weeks after surgery). Clinic is held in the [facility] on the first floor of [facility]. Call the office if you have: * increasing pain not responsive to pain medication * fever of 101F or higher * vomiting * unusual or increasing bleeding or drainage from wounds * increasing redness or swelling at wound sites Referrals: Cassius Britton MD [Staff Physician] - 2 Weeks Morteza Neal MD [Staff Physician] - 2 Weeks Chris Parra MD [Staff Physician] - 2 Weeks Shan Hawkins MD [Primary Care Provider] - 1 Week Disposition: HOME - Home Medications Comprehensive Discharge Medication List: Ambulatory Orders Adalimumab [Humira] 40 mg SQ [id number] #2 08/01/14 Alprazolam 0.5 tablet PO HS PRN #100 08/01/14 Sulfasalazine [Sulfasalazine Dr] 2 tablet PO HS #150 08/01/14 traMADol HCL [Ultram -] 50 mg PO BID #60 08/01/14 Atenolol [Tenormin -] 25 mg PO DAILY 06/15/17 Clopidogrel Bisulfate [Plavix] 75 mg PO Q2D 06/15/17 Fenofibrate 0 mg PO HS 06/15/17 Levothyroxine [Synthroid -] 50 mcg PO ASDIR 06/15/17 Levothyroxine [Synthroid -] 75 mcg PO ASDIR 06/15/17 Olmesartan/Hydrochlorothiazide [Olmesartan-Hctz 40-12.5 mg Tab] 1 each PO DAILY 06/15/17 Amlodipine Besylate 10 mg PO DAILY #15 tablet 06/17/17
[2017-06-18] MEDS ORDERED: traMADol HCL 50 MG TABLET PO PRN (09:24)
[2017-06-18] MEDS ORDERED: ACETAMINOPHEN 325 MG TABLET (FP) PO PRN (09:24)
[2017-06-18] MEDS: MORPHINE SULFATE 10 MG/1 ML *VIAL IVPUSH PRN (09:34)
[2017-06-18] MEDS ORDERED: ATENOLOL 25 MG TABLET (FP) PO SCH (10:00)
[2017-06-18] MEDS ORDERED: amLODIPine BESYLATE 5 MG TABLET (FP) PO SCH (10:00)
[2017-06-18] MEDS ORDERED: VALSARTAN 160 MG TABLET (UD) PO SCH (10:00)
--- NOTE | 2017-06-18 10:45 | PN ---
Progress Note (short form) - Note Progress Note: Pt s/p lap itzel for acute cholecystitis. Last dose of antibiotic running. Pt seen and examined in bed. Feeling well with some incisional soreness. Ambulating , voiding, has had BMs, tolerating diet. Had one dose of morphine, but ok with Tylenol and Tramadol for pain prn. No nausea or fever. Vital Signs Period Temp Pulse Resp BP Sys/[place] Pulse Ox Last 24 Hr 97.6 F-99.2 F 55-601 12-60 103-135/47-67 94-100 PE: A&O no rash or jaundice abdomen soft, obese, nondistended, incisionally tender only dressings x 4 c/d/i ext without edema or cyanosis CBCD WBC 8.9 K/mm3 (4.0-10.0) D 06/18/17 06:00 RBC 4.41 M/mm3 (3.60-5.2) 06/18/17 06:00 Hgb 12.6 GM/dL (10.7-15.3) 06/18/17 06:00 Hct 38.2 % (32.4-45.2) 06/18/17 06:00 MCV 86.8 fl (80-96) 06/18/17 06:00 MCHC 32.9 g/dl (32.0-36.0) 06/18/17 06:00 RDW 13.5 % (11.6-15.6) 06/18/17 06:00 Plt Count 190 K/MM3 (134-434) 06/18/17 06:00 MPV 9.4 fl (7.5-11.1) 06/18/17 06:00 CMP Sodium 143 mmol/L (136-145) 06/18/17 06:00 Potassium 4.0 mmol/L (3.5-5.1) 06/18/17 06:00 Chloride 108 mmol/L (98-107) H 06/18/17 06:00 Carbon Dioxide 28 mmol/L (21-32) 06/18/17 06:00 Anion Gap 7 (8-16) L 06/18/17 06:00 BUN 15 mg/dL (7-18) 06/18/17 06:00 Creatinine 0.9 mg/dL (0.55-1.02) 06/18/17 06:00 Creat Clearance w eGFR > 60 (>60) 06/18/17 06:00 Calcium 8.5 mg/dL (8.5-10.1) 06/18/17 06:00 Total Bilirubin 1.0 mg/dL (0.2-1.0) 06/18/17 06:00 AST 70 U/L (15-37) H 06/18/17 06:00 ALT 160 U/L (12-78) H 06/18/17 06:00 Alkaline Phosphatase 78 U/L (45-117) 06/18/17 06:00 Total Protein 6.8 g/dl (6.4-8.2) 06/18/17 06:00 Albumin 3.7 g/dl (3.4-5.0) 06/18/17 06:00 A/P: POD1 s/p laparoscopic cholecystectomy for acute cholecystitis brief bump in lipase likely represented passed stone - not acute pancreatitis, no pancreatitis on MRCP doing well abx completed ok for discharge home to f/u in 2 weeks ok to resume daily baby aspirin in 3 days hold humira until seen by rheumatology (2-4 weeks postop) d/c ibuprofen for pain prn as per cardiology - pt will use tylenol and tramadol for breakthrough (has at home) instructions in d/c plan Problem List - Problems (1) Calculus of gallbladder with acute cholecystitis without obstruction Code(s): K80.00 - CALCULUS OF GALLBLADDER W ACUTE CHOLECYST W/O OBSTRUCTION (2) Rheumatoid arthritis Code(s): M06.9 - RHEUMATOID ARTHRITIS, UNSPECIFIED Qualifiers: Rheumatoid arthritis location: multiple sites Rheumatoid factor presence: unspecified presence Qualified Code(s): M06.9 - Rheumatoid arthritis, unspecified (3) CAD (coronary artery disease) Code(s): I25.10 - ATHSCL HEART DISEASE OF [place] CORONARY ARTERY W/O ANG PCTRS Qualifiers: Coronary Disease-Associated Artery/Lesion type: [place] artery [place] vs. transplanted heart: [place] heart Associated angina: without angina Qualified Code(s): I25.10 - Atherosclerotic heart disease of [place] coronary artery without angina pectoris (4) HLD (hyperlipidemia) Code(s): E78.5 - HYPERLIPIDEMIA, UNSPECIFIED Qualifiers: Hyperlipidemia type: pure hypercholesterolemia Qualified Code(s): E78.00 - Pure hypercholesterolemia, unspecified; E78.0 - Pure hypercholesterolemia (5) HTN (hypertension) Code(s): I10 - ESSENTIAL (PRIMARY) HYPERTENSION Qualifiers: Hypertension type: essential hypertension Qualified Code(s): I10 - Essential (primary) hypertension (6) Hypothyroidism Code(s): E03.9 - HYPOTHYROIDISM, UNSPECIFIED Qualifiers: Hypothyroidism type: acquired Qualified Code(s): E03.9 - Hypothyroidism, unspecified
--- NOTE | 2017-06-18 11:51 | PN ---
Progress Note (short form) - Note Progress Note: Anesthesiology Post-op S: POD#1 s/p laparoscopic cholecystectomy under GA. O: Pt. doing well this morning. Pain well-managed. VSS. No apparent anesthesia- related issues. A: 66-year-old woman POD#1 doing well, stable. P: Continue current care by primary team.
[2017-06-18 12:19] VITALS: BP 138/70; PULSE 65; TEMP 98.4
--- NOTE | 2017-06-18 12:20 | PN ---
Progress Note, Physician History of Present Illness: stable no issues feels much better - Current Medication List Current Medications: Active Medications Acetaminophen (Tylenol -) 650 mg PO Q6H PRN PRN Reason: PAIN Amlodipine Besylate (Norvasc -) 5 mg PO DAILY [facility] Last Admin: 06/18/17 09:50 Dose: 5 mg Atenolol (Tenormin -) 25 mg PO DAILY [facility] Last Admin: 06/18/17 09:50 Dose: 25 mg Piperacillin Sod/Tazobactam (Sod 3.375 gm/ Dextrose) 100 mls @ 200 mls/hr IVPB Q8H-IV GLORIA PRN Reason: Protocol Last Admin: 06/18/17 09:51 Dose: 200 mls/hr Levothyroxine Sodium (Synthroid -) 75 mcg PO ASDIR@0700 [facility] Last Admin: 06/18/17 06:24 Dose: 75 mcg Levothyroxine Sodium (Synthroid -) 50 mcg PO Q3D@0700 [facility] Ondansetron HCl (Zofran Injection) 4 mg IVPUSH Q4H PRN PRN Reason: NAUSEA AND/OR VOMITING Tramadol HCl (Ultram -) 50 mg PO Q8H PRN PRN Reason: PAIN LEVEL 7 - 10 - Objective Vital Signs: Vital Signs Temperature 98.4 F 06/18/17 10:00 Pulse Rate 65 06/18/17 10:00 Respiratory Rate 18 06/18/17 10:00 Blood Pressure 138/70 06/18/17 10:00 O2 Sat by Pulse Oximetry (%) 94 L 06/17/17 21:00 Constitutional: Yes: No Distress, Calm Cardiovascular: Yes: Regular Rate and Rhythm Respiratory: Yes: Regular, CTA Bilaterally Gastrointestinal: Yes: Normal Bowel Sounds, Soft Musculoskeletal: Yes: WNL Extremities: Yes: WNL Wound/Incision: Yes: Clean/Dry Neurological: Yes: Alert, Oriented Psychiatric: Yes: Alert, Oriented Labs: CBC, BMP 06/18/17 06:00 06/18/17 06:00 INR, PTT INR 1.01 (0.82-1.09) 06/17/17 06:45 Assessment/Plan Problem List - Problems (1) Acute cholecystitis Code(s): K81.0 - ACUTE CHOLECYSTITIS (2) Cholelithiasis Code(s): K80.20 - CALCULUS OF GALLBLADDER W/O CHOLECYSTITIS W/O OBSTRUCTION Qualifiers: Cholelithiasis location: gallbladder Cholecystitis acuity: acute Biliary obstruction: without biliary obstruction (3) Transaminitis Code(s): R74.0 - NONSPEC ELEV OF LEVELS OF TRANSAMNS & LACTIC ACID DEHYDRGNSE (4) Pancreatitis Code(s): K85.90 - ACUTE PANCREATITIS WITHOUT NECROSIS OR INFECTION, UNSP Qualifiers: Chronicity: acute Pancreatitis type: biliary (5) Rheumatoid arthritis Code(s): M06.9 - RHEUMATOID ARTHRITIS, UNSPECIFIED (6) HLD (hyperlipidemia) Code(s): E78.5 - HYPERLIPIDEMIA, UNSPECIFIED Qualifiers: Hyperlipidemia type: pure hypercholesterolemia Qualified Code(s): E78.00 - Pure hypercholesterolemia, unspecified; E78.0 - Pure hypercholesterolemia (7) HTN (hypertension) Code(s): I10 - ESSENTIAL (PRIMARY) HYPERTENSION Qualifiers: Hypertension type: essential hypertension Qualified Code(s): I10 - Essential (primary) hypertension (8) Hypothyroidism Code(s): E03.9 - HYPOTHYROIDISM, UNSPECIFIED (9) CAD (coronary artery disease) Code(s): I25.10 - ATHSCL HEART DISEASE OF [place] CORONARY ARTERY W/O ANG PCTRS patient has got couple of doses of abx plan can stop abx rest as per primary team
[2017-06-19] MEDS ORDERED: LEVOTHYROXINE NA 75 MCG TABLET (FP) PO SCH (07:00)
--- NOTE | 2017-06-19 14:47 | PATH ---
Surgical Pathology Report Patient Name: MANSI BANEGAS Med. Rec. #: [id number] /Age/Gender: 1950 (Age: 66) / F Account: [id number] Location: [facility] MED/SURG Taken: 06/17/2017 Received: 06/18/2017 Reported: 06/19/2017 Physicians: Chrsi Parra M.D. Specimen(s) Received GALLBLADDER Clinical History Acute cholecystitis Final Diagnosis GALLBLADDER, CHOLECYSTECTOMY: CHRONIC CHOLECYSTITIS, CHOLESTEROLOSIS, AND CHOLELITHIASIS. Electronically Signed Romie Campos M.D. Gross Description Received in formalin, labeled "gallbladder," is an 8.0 x 3.5 x 3.0 cm. gallbladder with a 0.2 cm. in length portion of cystic duct attached. The outer surface is ann-green and varies from smooth to shaggy. The lumen contains green, tenacious bile as well as multiple yellow, irregular choleliths ranging from 0.2-1.2 cm in greatest dimension. The mucosa is green with gold cholesterol stippling. The wall of the gallbladder ranges from 0.1-0.2 cm. in thickness. Hand Scudder sections are submitted in one cassette. 06/18/201706/18/2017
[2017-06-20] MEDS ORDERED: LEVOTHYROXINE NA 50 MCG TABLET (FP) PO SCH (07:00)
--- NOTE | 2017-06-22 21:56 | OP ---
DATE OF OPERATION: 06/17/2017 PREOPERATIVE DIAGNOSIS: Acute cholecystitis. POSTOPERATIVE DIAGNOSIS: Acute cholecystitis. PROCEDURE PERFORMED: Laparoscopic cholecystectomy. SURGEON: Chris Parra MD SOLID WASTE LANDFILL TECHNICIAN: Santiago Hugo MD ANESTHESIA: General endotracheal and local, 20 mL of 0.5% Marcaine. ESTIMATED BLOOD LOSS: 5 mL FLUIDS: 800 mL of crystalloid. SPECIMEN: Gallbladder to Pathology. FINDINGS: Distended and inflamed gallbladder. Critical view was identified. DISPOSITION: Stable and extubated to PACU. INDICATIONS FOR PROCEDURE: The patient is a 66-year-old female with hypertension, hyperlipidemia, and coronary artery disease with history of a cardiac stent, hypothyroidism, scoliosis, osteoarthritis, and rheumatoid arthritis on Humira, fibromyalgia, history of colitis, history of with tubal ligation, history of a left hip replacement, who was admitted with epigastric pain, nausea, and vomiting and found on imaging and lab work to have elevated liver function tests and a high-normal lipase and ultrasound that showed multiple gallstones, thickened gallbladder wall, and trace pericholecystic fluid. There was no biliary ductal dilation. She received IV fluids, pain medications, and antibiotics and was admitted to Medicine for acute cholecystitis. Her lipase initially bumped a little to just over normal, and MRCP was done to exclude choledocholithiasis with the presumption that she was passing a stone. MRCP was, in fact, negative. Her labs continued to come down the following day, including her lipase returning to normal, and the patient is now brought for laparoscopic cholecystectomy. Risks, benefits, and alternatives of the procedure were discussed with the patient including, but not limited to, bleeding, infection, injury to adjacent structures, bile leak or ductal injury, intraabdominal abscess, hernia, the need for further procedures and alternatives inclusive of antibiotics and delayed or no surgery with attendant risks of cholangitis, sepsis, recurrence of cholecystitis, pancreatitis, or biliary colic. The patient has signed informed consent for laparoscopic, possible open cholecystectomy and is now brought to the OR for same. OPERATIVE TECHNIQUE: The patient was brought to the operating room and laid supine on the operating table. Sequential compression devices were applied to bilateral lower extremities, and appropriate antibiotics were given preoperatively. The patient was on treatment antibiotics and had received a second dose of Zosyn several hours prior. A gram of cefoxitin was given in the OR immediately prior to surgery. After induction and intubation by Anesthesia, the patient's abdomen was prepped and draped in sterile fashion, and a small supraumbilical midline incision was made with a scalpel and carried into subcutaneous tissues with electrocautery. Once the abdominal wall fascia was identified, it was scored and elevated with Andrzej clamps. The peritoneum was entered bluntly with the tip of a clamp, and a fingertip used to ensure entry into the abdominal cavity and the absence of any underlying adhesions. A stay suture of 0 Vicryl was placed in the fascia for later closure in figure- of-8 fashion, and a Katharina trocar was introduced directly into the abdominal cavity and secured in place with the balloon. The abdomen was insufflated with carbon dioxide. The patient was placed in reverse Trendelenburg position, and the laparoscope inserted to inspect the abdominal cavity. The gallbladder was visible at the edge of the liver and appeared to be distended and somewhat inflamed with a few overlying omental adhesions. An additional 5-mm port was placed in the subxiphoid area under direct vision, and a grasper through this used to gently take down some of the omentum stuck to the front wall of the gallbladder to reveal the entire bag. Two additional 5-mm ports were placed under direct vision in the right upper quadrant. Through these, 1 grasper was used to grasp the fundus of the gallbladder and elevate it over the liver edge. The second was used to grasp the infundibulum of the gallbladder and retract it laterally. A [place] dissector was then used at the base of the gallbladder to carefully dissect away the peritoneum and reveal and isolate the cystic duct and cystic artery. The critical view was identified with the cystic duct being seen as the only structure directly entering the gallbladder from both medial and lateral sides. This was then clipped two proximally and one distally and divided with endoscissors. The cystic artery was isolated, clipped, and divided in similar fashion. The hook cautery was then used to take the gallbladder off the liver bed. Once it was completely from the liver, the camera was switched to the subxiphoid port, and the gallbladder was placed in an Endo Catch bag and retrieved out of the umbilical port site. This was passed off the table for a pathology specimen, after being able to palpate several stones in the gallbladder. Once the Katharina trocar and pneumoperitoneum had been re-established, the camera was returned to the umbilical port. The operative site was inspected for hemostasis. There was no active bleeding noted. The suction child adolescent psychiatrist was used to irrigate the field and suction up the fluid and some blood clots. The patient was returned to neutral position and the omentum tucked into the operative area. The 5-mm ports were all removed under direct vision. The Katharina trocar and camera were also then removed and the abdomen exsufflated of carbon dioxide. The stay suture at the umbilicus was tied to close the fascia there. The port sites were irrigated with saline solution. Local anesthetic was injected into all port sites. Hemostasis was achieved with electrocautery in the port sites where necessary, and the skin was closed with 4 -0 Vicryl subcuticular sutures including a running at the umbilical location. Benzoin and Steri-Strips were applied to each incision, which were then covered with dressings of gauze and Tegaderm. Counts were correct at the end of the procedure. The patient was then awakened and extubated by Anesthesia, moved back to a stretcher, and taken to the recovery room in stable condition, having tolerated the procedure well. Dr. Hugo was an essential group fitness assistant department head throughout the procedure, including facilitating access into the abdominal cavity, grasping and manipulation of the gallbladder, facilitating its removal from the abdominal cavity, and helping with skin closure. Chrsi Parra M.D. [id number] MTDD
== END 2017-06-18 12:58 | disposition home or self-care (01) | DRG 417 ==
LOC: FER 14:47 → SUPCPDRO 14:47 → J8W 06-16 00:30 → INTOOBSV 06-16 01:27 → UNDOADMOB 06-16 01:27 → OBSVTOIN 06-16 17:13
PROVIDERS: ADMIT Internal Medicine; ATTEND Internal Medicine
PROC: 0FT44ZZ Resection of Gallbladder, Percutaneous Endoscopic Approach (ICD-10-PCS; principal; 2017-06-17 13:00)
DX: K80.00 Calculus of gallbladder with acute cholecystitis without obstruction (principal); K85.10 Biliary acute pancreatitis without necrosis or infection; M06.9 Rheumatoid arthritis, unspecified; E87.6 Hypokalemia; I10 Essential (primary) hypertension; I25.10 Atherosclerotic heart disease of native coronary artery without angina pectoris; M41.9 Scoliosis, unspecified; Z87.891 Personal history of nicotine dependence; R74.0 Nonspecific elevation of levels of transaminase and lactic acid dehydrogenase [LDH]; E78.5 Hyperlipidemia, unspecified; E66.9 Obesity, unspecified; E03.9 Hypothyroidism, unspecified; Z68.29 Body mass index [BMI] 29.0-29.9, adult; I44.7 Left bundle-branch block, unspecified; M79.7 Fibromyalgia
CPT/HCPCS: 36415; 74181-TC; 76705-TC; 80048; 80053; 80076; 81003; 82248; 83690; 83735; 84100; 85025; 85027; 85610; 86850; 86900; 86901; 87040; 88304-TC; 93005; 93010; 94010; 94760; 99283-25; G0378

== ENCOUNTER 2024-05-26 14:52 | Inpatient (IN) | payer OTHER, MEDICARE ==
[2024-05-26 15:50] LABS: HEMATOCRIT 43.3 % (32.4-45.2); HEMOGLOBIN 13.8 GM/dL (10.7-15.3); MCH 27.2 pg (25.7-33.7); MCHC 31.9 g/dl (32.0-36.0); MEAN CELL VOLUME 85.3 fl (80-96); MEAN PLT VOLUME 9.6 fl (7.5-11.1); PLATELET COUNT 337 10^3/uL (134-434); RBC 5.08 M/mm3 (3.60-5.2); RDW 19.4 % (11.6-15.6); WHITE BLOOD COUNT 22.8 K/mm3 (4.0-10.0)
[2024-05-26 16:11] LABS: CHLORIDE 104 mmol/L (98-107); POTASSIUM 4.2 mmol/L (3.5-5.1); SODIUM 136 mmol/L (136-145)
[2024-05-26 16:14] LABS: ALBUMIN 2.2 g/dl (3.4-5.0); CALCIUM 9.4 mg/dL (8.5-10.1)
[2024-05-26 16:15] LABS: ANION GAP 16 mmol/L (4-13); CO2 16 mmol/L (21-32); GLUCOSE,RANDOM 157 mg/dL (74-106); MAGNESIUM 2.7 mg/dL (1.8-2.4)
[2024-05-26 16:18] LABS: CREATININE 3.4 mg/dL (0.55-1.3); SGOT/AST 66 U/L (15-37); SGPT/ALT 17 U/L (13-61)
[2024-05-26 16:20] LABS: BILIRUBIN,TOTAL 1.2 mg/dL (0.2-1); BLOOD UREA NITROGEN 110.1 mg/dL (7-18)
[2024-05-26 16:21] LABS: ALK PHOS 72 U/L (45-117)
[2024-05-26 16:24] LABS: ANISOCYTOSIS 0; MACROCYTOSIS 0; N-TERMINAL BNP 1229.6 pg/ml (5-125)
[2024-05-26 16:33] LABS: VENOUS BASE EXCESS -7.5 mmol/L (-2-2); VENOUS O2 SATURATION 95.4 % (70-80); VENOUS PCO2 30.6 mmHg (38-52); VENOUS PH 7.354 (7.310-7.410)
[2024-05-26 16:37] LABS: LACTIC ACID 4.5 mmol/L (0.4-2.0)
[2024-05-26] MEDS: SODIUM CHLORIDE 1,000 ML IV STA ×4 (16:43→20:15)
[2024-05-26] MEDS ORDERED: ONDANSETRON 4 MG/2 ML VIAL ONE (16:45)
[2024-05-26] MEDS ORDERED: PIPERACILLIN/TAZOB 3.375 GM 3.375 GM/50 ML BAG IVPB ONE (16:45)
[2024-05-26] MEDS ORDERED: VANCOMYCIN 1 GM PREMIX (F) 1 GM/200 ML BAG ONE (16:51)
[2024-05-26] MEDS ORDERED: MAGNESIUM SULFATE IN WATER 2 GM/50 ML IVPB IVPB ONE (16:52)
[2024-05-26] MEDS: PIPERACILLIN/TAZOB 3.375 GM 3.375 GM in DEXTROSE 5%-WATER - 50 ML IVPB ONE (17:03)
[2024-05-26] MEDS: ONDANSETRON 4 MG/2 ML VIAL IVPUSH ONE (17:03)
[2024-05-26] MEDS ORDERED: MAGNESIUM 1GM/D5W - 1 GM/100 ML IVPB IVPB ONE (17:07)
[2024-05-26] MEDS: MAGNESIUM 1GM/D5W - 1 GM/100 ML IVPB IVPB ONE (17:35)
[2024-05-26] MEDS ORDERED: dilTIAZem HCL 125 MG/25 ML - 25 ML VIAL ONE (17:57)
[2024-05-26] MEDS: dilTIAZem HCL 50 MG/10 ML - 10 ML VIAL IVPUSH ONE (18:50)
[2024-05-26] MEDS: VANCOMYCIN 1,000 MG in DEXTROSE 5%-WATER - 250 ML IVPB ONE (19:11)
[2024-05-26 19:36] LABS: URINE APPEARANCE CLOUDY; URINE BILIRUBIN 2+ (NEGATIVE); URINE COLOR DK YELLOW; URINE GLUCOSE (UA) NEGATIVE (NEGATIVE); URINE KETONE TRACE (NEGATIVE); URINE LEUK ESTERASE 1+ (NEGATIVE); URINE NITRITE NEGATIVE (NEGATIVE); URINE PROTEIN 2+ (NEGATIVE)
[2024-05-26 20:15] LABS: LACTIC ACID 2.1 mmol/L (0.4-2.0)
[2024-05-26 20:23] LABS: EPI CELLS 46.2 /uL (0-25.1); HYALINE CASTS 13.58 /uL (0-3.1); URINE BACTERIA 45.3 /uL (0-1359); URINE RBC 67.6 /uL (0-23.9); URINE WBC 148.9 /uL (0-25.8)
[2024-05-27] MEDS: SODIUM CHLORIDE 1,000 ML IV STA (00:04)
[2024-05-27] MEDS ORDERED: PIPERACILLIN/TAZOB 2.25 GM 2.25 GM/50 ML BAG IVPB ONE (02:05)
[2024-05-27] MEDS: PIPERACILLIN/TAZOB 2.25 GM 2.25 GM in DEXTROSE 5%-WATER - 50 ML IVPB SCH (02:29)
[2024-05-27] MEDS ORDERED: LORazepam 2 MG/ML SDV VIAL ONE ×2 (03:07→09:40)
[2024-05-27] MEDS ORDERED: MORPHINE SULFATE 2 MG/ML SYRINGE ONE ×2 (03:13→06:33)
[2024-05-27] MEDS: MORPHINE SULFATE 2 MG/ML SYRINGE IVPUSH PRN ×2 (03:18→05:15)
[2024-05-27] MEDS: LORazepam 2 MG/ML SDV VIAL IVPUSH PRN ×2 (03:18→06:04)
[2024-05-27] MEDS ORDERED: ACETAMINOPHEN INJECTION 100 ML ONE (05:56)
[2024-05-27] MEDS: ACETAMINOPHEN 1000 MG/100 ML BAG IVPB PRN (05:57)
[2024-05-27] MEDS ORDERED: MORPHINE SULFATE/0.9% NACL/PF 100 MG/100 ML BAG IVPB SCH (10:15)
[2024-05-27 12:36] VITALS: BMI 25.4
[2024-05-27] MEDS: MORPHINE SULFATE/0.9% NACL/PF 100 MG/100 ML BAG IVPB SCH ×2 (13:05→17:56)
[2024-05-27] MEDS: SCOPOLAMINE HYDROBROMIDE 1 PATCH PATCH.TD72 TD SCH (13:06)
[2024-05-27 22:43] VITALS: PULSE 69; RESP 14
[2024-05-28 07:39] VITALS: BP 57/36; TEMP 98.2
[2024-05-29] MEDS ORDERED: PIPERACILLIN/TAZOB 2.25 GM 2.25 GM in DEXTROSE 5%-WATER - 50 ML IVPB SCH (02:00)
== END 2024-05-28 15:57 | disposition expired | DRG 871 ==
LOC: JER 14:52 → OBSVTOIN 17:31 → JERBED 17:31 → J7W 05-27 10:00
PROVIDERS: ADMIT Internal Medicine; ATTEND Internal Medicine
DX: A41.89 Other specified sepsis (principal); R65.21 Severe sepsis with septic shock; C34.90 Malignant neoplasm of unspecified part of unspecified bronchus or lung; C79.31 Secondary malignant neoplasm of brain; C79.51 Secondary malignant neoplasm of bone; C79.70 Secondary malignant neoplasm of unspecified adrenal gland; N17.9 Acute kidney failure, unspecified; E87.20 Acidosis, unspecified; J18.9 Pneumonia, unspecified organism; I10 Essential (primary) hypertension; E03.9 Hypothyroidism, unspecified; I25.10 Atherosclerotic heart disease of native coronary artery without angina pectoris; M06.9 Rheumatoid arthritis, unspecified; I48.91 Unspecified atrial fibrillation; D72.829 Elevated white blood cell count, unspecified; E78.5 Hyperlipidemia, unspecified
CPT/HCPCS: 0241U-QW; 71045-TC-FY; 80053; 81003; 82803; 82962; 83605; 83735; 83880; 84484; 85025; 86850; 86900; 86901; 87040; 87086; 93005; 93010; 99291; J0131